=== PATIENT | male | born 1995 | race Caucasian/White ===

== ENCOUNTER 2020-08-16 06:45 | Inpatient (IN) | payer OTHER, SELFPAY ==
[2020-08-16] VITALS (27 sets, daily range): BP systolic 90–135; BP diastolic 48–94; PULSE 75–92; RESP 5–26; TEMP 36.1–37.5; O2SAT 90–100; BMI 33.2; BMI 35.2
--- NOTE | 2020-08-16 | CT_ITS ---
EXAMINATION: CT CHEST WITHOUT CONTRAST CLINICAL INFORMATION: Hypoxia. Body aches. Concern for Covid infection. COMPARISON: Previous chest x-ray from earlier the same day TECHNIQUE: Multidetector volumetric CT imaging of the chest was done. Axial MIP volume rendering provided. Sagittal and coronal reformatted images were obtained. This CT examination was performed using dose optimization techniques as appropriate, variously including the following: *Automated exposure control *Adjustment of mA and/or kV according to patient size (this includes techniques or standardized protocols for targeted exams where dose is matched to indication/reason for exam; i.e. extremities or head) *Use of iterative reconstruction technique DLP: 327 mGy-cm FINDINGS: LUNGS: The lung volumes are low. There is particular volume loss of the right lower lobe. There are bilateral patchy areas of subsegmental atelectasis or small infiltrates. These are areas are greatest in the lower lobes. There are also small areas in the posterior segment of the right upper lobe and medial segment of the right middle lobe and inferior segment of the lingula. There is a 5 mm peripheral or subpleural right lower lobe nodule adjacent to the major fissure probably representing a subpleural lymph node. No endobronchial or endotracheal lesion is seen. No evidence of interstitial lung disease or bronchiectasis or emphysema is seen. MEDIASTINUM: The heart is enlarged. There is shotty mediastinal lymphadenopathy. Evaluation for hilar adenopathy is limited due to lack of IV contrast. There is no pericardial effusion. The thoracic aorta is normal in caliber. The esophagus is unremarkable. The visualized thyroid gland is unremarkable. PLEURA: There is no pleural effusion. No pleural mass or thickening. AXILLA: No lymphadenopathy. UPPER ABDOMEN: The liver is low in attenuation suggestive of fatty infiltration. OSSEOUS STRUCTURES: Unremarkable. IMPRESSION: Low lung volumes. In particular, there is volume loss to the right lower lobe. Bilateral patchy areas of atelectasis or small pneumonia. Chest CT appearance is nonspecific. Enlarged heart. Shotty mediastinal lymphadenopathy. Fatty liver.
--- NOTE | 2020-08-16 | US_ITS ---
EXAMINATION: US ABDOMEN LIMITED CLINICAL INFORMATION: Rule out Budd-Chiari syndrome. COMPARISON: CT chest and abdomen earlier today TECHNIQUE: Real-time imaging of the right upper quadrant abdominal viscera. FINDINGS: PANCREAS: The pancreas appears unremarkable, without masses or ductal dilatation, with the exception of the tail which is obscured by bowel gas. LIVER: The liver demonstrates increased echogenicity suggesting hepatic steatosis similar to that seen on today. No focal liver mass or bile duct dilatation is seen. The hepatic veins all appear patent as does the intrahepatic IVC. GALLBLADDER: Echogenic tumefactive bile is noted in the gallbladder. One area of focal cortical thickening is seen measuring 4 mm. The gallbladder shows no definitive shadowing calculi and no pericholecystic fluid collections. COMMON BILE DUCT: Normal in caliber measuring 0.2 cm in diameter. RIGHT KIDNEY: No hydronephrosis. No renal calculi or focal parenchymal lesions. The kidney measures 9.4 cm in maximum dimension. FREE FLUID: None. IMPRESSION: The hepatic veins and IVC are patent and there is no evidence to suggest the presence of Budd-Chiari syndrome. Again demonstrated is hepatic steatosis.
--- NOTE | 2020-08-16 06:59 | ED.WEAKNESS ---
HPI - Weakness General Chief complaint: General Medical Stated complaint: DOESNT FEEL WELL,LOW O2SAT(92%ON 4LPM) Time Seen by Provider: 08/16/20 06:59 Source: patient Mode of arrival: EMS Limitations: no limitations History of Present Illness HPI Narrative: denies COVID risk factors states he was just not feeling well, no insect bite, no rash, no travel, one prior episode in the past that resolved, EMS found patient to be hypoxic 77 on arrival with improvement to low 90s on 4L NC MD Complaint: generalized weakness and lack of energy Onset (ago): day(s) (2) Duration: constant Location: generalized Migration: none Severity: severe Relieving factors: none Exacerbating factors: none Context: other (DENIES) Associated symptoms: loss of appetite, nausea/vomiting and myalgias Related Data Home Medications Medication Instructions Recorded Confirmed aripiprazole [Abilify] 4 mg PO DAILY 08/16/20 08/16/20 clonazepam [Klonopin] 1 mg PO TID 08/16/20 08/16/20 gabapentin 300 mg PO TID 08/16/20 08/16/20 lamotrigine [Lamictal] 150 mg PO DAILY 08/16/20 08/16/20 methadone 150 mg 08/16/20 Allergies Allergy/AdvReac Type Severity Reaction Status Date / Time animal dander [ANIMAL HAIR] Allergy Intermediate DIFFICULTY Verified 08/16/20 07:00 BREATHING feathers [FEATHERS] Allergy Intermediate DIFFICULTY Verified 08/16/20 07:00 BREATHING del cid [DEL CID] Allergy Intermediate DIFFICULTY Verified 08/16/20 07:00 BREATHING grass pollen [GRASS POLLEN] Allergy Intermediate DIFFICULTY Verified 08/16/20 07:00 BREATHING tree and shrub pollen [TREES] Allergy Intermediate DIFFICULTY Verified 08/16/20 07:00 BREATHING amoxicillin [Amoxicillin] Allergy Unknown HIVES Verified 08/16/20 07:00 Penicillins Allergy Unknown HIVES Verified 08/16/20 07:00 Review of Systems Review of Systems: Constitutional : no Fever, positive Chills, positive fatigue, positive Malaise ENT/Mouth : no sore throat, positive runny nose, positive ear pain Eyes: No Discharge Cardiovascular : No Chest Pain, + weakness Respiratory : No Cough, No Sputum Gastrointestinal : positive Nausea, positive Vomiting, No Diarrhea Genitourinary : No Dysuria, No Urinary Frequency, dark urine Musculoskeletal : positive Myalgia Skin : No rash Neuro : No Headache [facility] Past Medical History Medical History Anxiety Asthma Depression Social History Social History (Updated 08/16/20 @ 07:05 by Judith Alanis DO) Alcohol intake: unknown Smoking Status: Current some day smoker Tobacco Type: E-Cigarette Use of substances other than those prescribed or required for medical reasons: Unknown Substance Use Type Other:: former abuse Advance Directives: No Advance Directives Information Provided: No Physical Exam Vital Signs and I&O and Narrative: Vital Signs and I&O: Vital Signs Temp 97.7 F 08/16/20 10:36 Pulse 88 08/16/20 10:36 Resp 16 08/16/20 10:36 BP 102/64 08/16/20 10:36 Pulse Ox 97 08/16/20 07:52 Intake & Output 08/15/20 08/16/20 08/16/20 18:59 06:59 18:59 Intake Total 1049 / 1049 Balance 1049 / 1049 Weight 96.162 kg Intake: Intake, IV Amoun t 1049 / 1049 cefTRIAXone so dium 1 gm In 0.9 50 / 50 % Sodium Chlor scottie 50 ml @ 100 mls/hr IV ONCE ONE Rx#: [id number] 0.9 % Sodium C hloride 1,000 ml 999 / 999 @ 999 mls/hr I VCONT .Q1H1M LILA Rx#:[id number] Body Mass Index 33.2 Appearance: Alert. Oriented X3. Mild acute distress. Eyes: Pupils equal, round and reactive to light. ENT: Pharynx moderate dry MMM Neck: Normal inspection. Neck supple. CVS: Normal heart rate and rhythm. Pulses normal. Respiratory: No respiratory distress. Breath sounds decreased, rhonchi noted Abdomen: Soft and nontender. Skin: Skin warm and dry. Normal skin color. poor skin turgor. Extremities: No lower extremity edema. Normal ROM Neuro: Oriented X 3. No motor deficit. No sensory deficit. Course Course Course Narrative: IVF held at this time as presumed VS and lab abnormalities due to COVID viral infection and not bacterial in nature, also showing signs of cardiomegaly and elevated BNP concerning for myocarditis and possible CHF Reevaluation(s) Reevaluation #1: will obtain CT chest at this time for better evaluation of lungs Time: 08:56 Reevaluation #2: call to cardiology no STEMI on EKG noted by me, Bandar aware - ECHO ordered Reevaluation #3: call to ICU pending call back, ordered CT scan of abdomen to look for infection as well procalcitonin is 17 Additional Reevaluation(s): Dr. Cherry aware will come down to see patient and place line MDM - Weakness MDM Narrative Medical decision making narrative: patient with malaise, fatigue, body aches low O2 sat with EMS now on 4L NC in 90s, ?viral syndrome vs pneumonia will need labs, lactic acid, cultures, CXR, IVF, tylenol and zofran, COVID swab ordered Lab Data Result diagrams: 08/16/20 07:27 08/16/20 07:27 Labs: Lab Results 08/16/20 08/16/20 08/16/20 Range/Units 07:27 07:27 07:27 WBC 13.1 H (4.8-10.8) X10*3/uL RBC 4.58 L (4.60-5.80) X10*6/uL Hgb 13.2 L (14.0-18.0) g/dl Hct 41.8 L (42-52) % MCV 91.3 (80-98) fL MCH 28.8 (27.0-33.0) pg MCHC 31.6 (31.0-36.0) g/dl RDW 13.3 (11.0-16.0) % Plt Count 128 L (160-400) X10*3/uL MPV 10.3 (9.4-12.4) fL Immature Gran % (Auto) 0.4 (0.0-0.4) % Neut % (Auto) 75.8 H (45-73) % Lymph % (Auto) 15.7 L (20-40) % Harding % (Auto) 8.0 (2-11) % Eos % (Auto) 0.0 (0-4) % Baso % (Auto) 0.1 (0-2) % Neut # (Auto) 9.9 H (2.0-8.3) X10*3/uL Lymph # (Auto) 2.1 (1.2-4.9) X10*3/uL [place] # (Auto) 1.1 (0.1-1.2) X10*3/uL Eos # (Auto) 0.0 (0.0-0.4) X10*3/uL Baso # (Auto) 0.0 (0.0-0.2) X10*3/uL Abs Immat Gran (auto) 0.05 H (0.00-0.03) X10*3/uL Absolute Nucleated RBC 0.000 (0.0-0.012) X10*3/uL Nucleated RBC % (auto) 0.0 (0.0-0.2) /100WBC PT 23.5 H (10.8-13.0) SEC INR 2.0 H (0.9-1.1) APTT 40.3 H (24.1-38.0) SEC D-Dimer 50029 NG/ML ABG pH (7.35-7.45) ABG pCO2 (32-45) mmhg ABG pO2 (83-108) mmhg ABG HCO3 (22-26) mmol/l ABG O2 Saturation ABG Base Excess VBG pH (7.32-7.43) VBG pCO2 mmhg VBG Oxygen Liters/Min VBG pO2 mmhg VBG HCO3 mmol/L VBG O2 Saturation % VBG Base Excess mmol/L Carboxyhemoglobin % Oxygen Given Sodium 135 (135-145) mmol/L Potassium 5.2 H (3.3-5.1) mmol/l Chloride 95 L (96-108) mmol/L Carbon Dioxide 27 (22-29) mmol/L Anion Gap 18 (12-20) BUN 31 H (9-16) mg/dL Creatinine 2.28 H (0.5-1.4) mg/dL Estim Creat Clear Calc 54.7 Estimated GFR 35 Random Glucose 66 (60-115) mg/dL Lactic Acid (0.5-2.0) mmol/L Calcium 7.6 L (8.4-10.2) mg/dL Magnesium 2.3 (1.6-2.6) mg/dL Ferritin > 05189 H (20-250) ng/mL Total Bilirubin 0.5 (0.0-1.0) mg/dL Direct Bilirubin 0.2 (0.0-0.5) mg/dL AST 31789 H (5-37) U/L ALT 6793 H (0-40) U/L Alkaline Phosphatase 93 (39-117) U/L Lactate Dehydrogenase 66351 H (118-273) U/L Total Creatine Kinase 2260 H (38-174) U/L Troponin I High Sens (<3.5-35.0) ng/L B-Natriuretic Peptide (<100) pg/mL Total Protein 7.3 (6.5-8.0) g/dL Albumin 4.1 (3.5-5.0) g/dL Lipase 114 H (8-78) U/L Procalcitonin ng/mL TSH 0.31 L (0.32-4.0) mIU/mL Acetaminophen 18 (<30) mcg/mL Acetone, Qual Negative (Negative) Respiratory Panel Rider Adenovirus (Rapid PCR) (Not Detect.) B.pert (TEM-PCR) (Not Detect.) B.parapertussis DNA PCR (Not Detect.) C. pneumoniae DNA (PCR) (Not Detect.) Coronavirus OC43 (PCR) (Not Detect.) Coronavirus HKU1 (PCR) (Not Detect.) Coronavirus 229E (PCR) (Not Detect.) Coronavirus NL63 (PCR) (Not Detect.) Human Metapneumovir PCR (Not Detect.) Influenza A (RT-PCR) (Not Detect.) Influenza B (RT-PCR) (Not Detect.) M. pneumoniae (PCR) (Not Detect.) Parainfluenza 1 (PCR) (Not Detect.) Parainfluenza 2 (PCR) (Not Detect.) Parainfluenza 3 (PCR) (Not Detect.) Parainfluenza 4 (PCR) (Not Detect.) RSV (PCR) (Not Detect.) Entero/Rhino (PCR) (Not Detect.) SARS-CoV-2 RNA (RT-PCR) (Not Detect.) 08/16/20 08/16/20 08/16/20 Range/Units 07:28 07:28 07:28 WBC (4.8-10.8) X10*3/uL RBC (4.60-5.80) X10*6/uL Hgb (14.0-18.0) g/dl Hct (42-52) % MCV (80-98) fL MCH (27.0-33.0) pg MCHC (31.0-36.0) g/dl RDW (11.0-16.0) % Plt Count (160-400) X10*3/uL MPV (9.4-12.4) fL Immature Gran % (Auto) (0.0-0.4) % Neut % (Auto) (45-73) % Lymph % (Auto) (20-40) % Harding % (Auto) (2-11) % Eos % (Auto) (0-4) % Baso % (Auto) (0-2) % Neut # (Auto) (2.0-8.3) X10*3/uL Lymph # (Auto) (1.2-4.9) X10*3/uL [place] # (Auto) (0.1-1.2) X10*3/uL Eos # (Auto) (0.0-0.4) X10*3/uL Baso # (Auto) (0.0-0.2) X10*3/uL Abs Immat Gran (auto) (0.00-0.03) X10*3/uL Absolute Nucleated RBC (0.0-0.012) X10*3/uL Nucleated RBC % (auto) (0.0-0.2) /100WBC PT (10.8-13.0) SEC INR (0.9-1.1) APTT (24.1-38.0) SEC D-Dimer NG/ML ABG pH (7.35-7.45) ABG pCO2 (32-45) mmhg ABG pO2 (83-108) mmhg ABG HCO3 (22-26) mmol/l ABG O2 Saturation ABG Base Excess VBG pH (7.32-7.43) VBG pCO2 mmhg VBG Oxygen Liters/Min VBG pO2 mmhg VBG HCO3 mmol/L VBG O2 Saturation % VBG Base Excess mmol/L Carboxyhemoglobin 1.8 % Oxygen Given Sodium (135-145) mmol/L Potassium (3.3-5.1) mmol/l Chloride (96-108) mmol/L Carbon Dioxide (22-29) mmol/L Anion Gap (12-20) BUN (9-16) mg/dL Creatinine (0.5-1.4) mg/dL Estim Creat Clear Calc Estimated GFR Random Glucose (60-115) mg/dL Lactic Acid 1.9 (0.5-2.0) mmol/L Calcium (8.4-10.2) mg/dL Magnesium (1.6-2.6) mg/dL Ferritin (20-250) ng/mL Total Bilirubin (0.0-1.0) mg/dL Direct Bilirubin (0.0-0.5) mg/dL AST (5-37) U/L ALT (0-40) U/L Alkaline Phosphatase (39-117) U/L Lactate Dehydrogenase (118-273) U/L Total Creatine Kinase (38-174) U/L Troponin I High Sens 2660.9 H (<3.5-35.0) ng/L B-Natriuretic Peptide 1488 H (<100) pg/mL Total Protein (6.5-8.0) g/dL Albumin (3.5-5.0) g/dL Lipase (8-78) U/L Procalcitonin ng/mL TSH (0.32-4.0) mIU/mL Acetaminophen (<30) mcg/mL Acetone, Qual (Negative) Respiratory Panel Rider Adenovirus (Rapid PCR) (Not Detect.) B.pert (TEM-PCR) (Not Detect.) B.parapertussis DNA PCR (Not Detect.) C. pneumoniae DNA (PCR) (Not Detect.) Coronavirus OC43 (PCR) (Not Detect.) Coronavirus HKU1 (PCR) (Not Detect.) Coronavirus 229E (PCR) (Not Detect.) Coronavirus NL63 (PCR) (Not Detect.) Human Metapneumovir PCR (Not Detect.) Influenza A (RT-PCR) (Not Detect.) Influenza B (RT-PCR) (Not Detect.) M. pneumoniae (PCR) (Not Detect.) Parainfluenza 1 (PCR) (Not Detect.) Parainfluenza 2 (PCR) (Not Detect.) Parainfluenza 3 (PCR) (Not Detect.) Parainfluenza 4 (PCR) (Not Detect.) RSV (PCR) (Not Detect.) Entero/Rhino (PCR) (Not Detect.) SARS-CoV-2 RNA (RT-PCR) (Not Detect.) 08/16/20 08/16/20 08/16/20 Range/Units 07:28 07:28 08:35 WBC (4.8-10.8) X10*3/uL RBC (4.60-5.80) X10*6/uL Hgb (14.0-18.0) g/dl Hct (42-52) % MCV (80-98) fL MCH (27.0-33.0) pg MCHC (31.0-36.0) g/dl RDW (11.0-16.0) % Plt Count (160-400) X10*3/uL MPV (9.4-12.4) fL Immature Gran % (Auto) (0.0-0.4) % Neut % (Auto) (45-73) % Lymph % (Auto) (20-40) % [place] % (Auto) (2-11) % Eos % (Auto) (0-4) % Baso % (Auto) (0-2) % Neut # (Auto) (2.0-8.3) X10*3/uL Lymph # (Auto) (1.2-4.9) X10*3/uL [place] # (Auto) (0.1-1.2) X10*3/uL Eos # (Auto) (0.0-0.4) X10*3/uL Baso # (Auto) (0.0-0.2) X10*3/uL Abs Immat Gran (auto) (0.00-0.03) X10*3/uL Absolute Nucleated RBC (0.0-0.012) X10*3/uL Nucleated RBC % (auto) (0.0-0.2) /100WBC PT (10.8-13.0) SEC INR (0.9-1.1) APTT (24.1-38.0) SEC D-Dimer NG/ML ABG pH 7.21 L (7.35-7.45) ABG pCO2 68 H* (32-45) mmhg ABG pO2 67 L (83-108) mmhg ABG HCO3 26 (22-26) mmol/l ABG O2 Saturation TNP ABG Base Excess -3.2 VBG pH 7.25 L (7.32-7.43) VBG pCO2 71 mmhg VBG Oxygen Liters/Min VBG pO2 105 mmhg VBG HCO3 30 mmol/L VBG O2 Saturation 96.8 % VBG Base Excess 1.0 mmol/L Carboxyhemoglobin % Oxygen Given 3 L Sodium (135-145) mmol/L Potassium (3.3-5.1) mmol/l Chloride (96-108) mmol/L Carbon Dioxide (22-29) mmol/L Anion Gap (12-20) BUN (9-16) mg/dL Creatinine (0.5-1.4) mg/dL Estim Creat Clear Calc Estimated GFR Random Glucose (60-115) mg/dL Lactic Acid (0.5-2.0) mmol/L Calcium (8.4-10.2) mg/dL Magnesium (1.6-2.6) mg/dL Ferritin (20-250) ng/mL Total Bilirubin (0.0-1.0) mg/dL Direct Bilirubin (0.0-0.5) mg/dL AST (5-37) U/L ALT (0-40) U/L Alkaline Phosphatase (39-117) U/L Lactate Dehydrogenase (118-273) U/L Total Creatine Kinase (38-174) U/L Troponin I High Sens (<3.5-35.0) ng/L B-Natriuretic Peptide (<100) pg/mL Total Protein (6.5-8.0) g/dL Albumin (3.5-5.0) g/dL Lipase (8-78) U/L Procalcitonin 17.44 ng/mL TSH (0.32-4.0) mIU/mL Acetaminophen (<30) mcg/mL Acetone, Qual (Negative) Respiratory Panel Rider Adenovirus (Rapid PCR) (Not Detect.) B.pert (TEM-PCR) (Not Detect.) B.parapertussis DNA PCR (Not Detect.) C. pneumoniae DNA (PCR) (Not Detect.) Coronavirus OC43 (PCR) (Not Detect.) Coronavirus HKU1 (PCR) (Not Detect.) Coronavirus 229E (PCR) (Not Detect.) Coronavirus NL63 (PCR) (Not Detect.) Human Metapneumovir PCR (Not Detect.) Influenza A (RT-PCR) (Not Detect.) Influenza B (RT-PCR) (Not Detect.) M. pneumoniae (PCR) (Not Detect.) Parainfluenza 1 (PCR) (Not Detect.) Parainfluenza 2 (PCR) (Not Detect.) Parainfluenza 3 (PCR) (Not Detect.) Parainfluenza 4 (PCR) (Not Detect.) RSV (PCR) (Not Detect.) Entero/Rhino (PCR) (Not Detect.) SARS-CoV-2 RNA (RT-PCR) (Not Detect.) 08/16/20 Range/Units 09:44 WBC (4.8-10.8) X10*3/uL RBC (4.60-5.80) X10*6/uL Hgb (14.0-18.0) g/dl Hct (42-52) % MCV (80-98) fL MCH (27.0-33.0) pg MCHC (31.0-36.0) g/dl RDW (11.0-16.0) % Plt Count (160-400) X10*3/uL MPV (9.4-12.4) fL Immature Gran % (Auto) (0.0-0.4) % Neut % (Auto) (45-73) % Lymph % (Auto) (20-40) % Harding % (Auto) (2-11) % Eos % (Auto) (0-4) % Baso % (Auto) (0-2) % Neut # (Auto) (2.0-8.3) X10*3/uL Lymph # (Auto) (1.2-4.9) X10*3/uL Harding # (Auto) (0.1-1.2) X10*3/uL Eos # (Auto) (0.0-0.4) X10*3/uL Baso # (Auto) (0.0-0.2) X10*3/uL Abs Immat Gran (auto) (0.00-0.03) X10*3/uL Absolute Nucleated RBC (0.0-0.012) X10*3/uL Nucleated RBC % (auto) (0.0-0.2) /100WBC PT (10.8-13.0) SEC INR (0.9-1.1) APTT (24.1-38.0) SEC D-Dimer NG/ML ABG pH (7.35-7.45) ABG pCO2 (32-45) mmhg ABG pO2 (83-108) mmhg ABG HCO3 (22-26) mmol/l ABG O2 Saturation ABG Base Excess VBG pH (7.32-7.43) VBG pCO2 mmhg VBG Oxygen Liters/Min VBG pO2 mmhg VBG HCO3 mmol/L VBG O2 Saturation % VBG Base Excess mmol/L Carboxyhemoglobin % Oxygen Given Sodium (135-145) mmol/L Potassium (3.3-5.1) mmol/l Chloride (96-108) mmol/L Carbon Dioxide (22-29) mmol/L Anion Gap (12-20) BUN (9-16) mg/dL Creatinine (0.5-1.4) mg/dL Estim Creat Clear Calc Estimated GFR Random Glucose (60-115) mg/dL Lactic Acid (0.5-2.0) mmol/L Calcium (8.4-10.2) mg/dL Magnesium (1.6-2.6) mg/dL Ferritin (20-250) ng/mL Total Bilirubin (0.0-1.0) mg/dL Direct Bilirubin (0.0-0.5) mg/dL AST (5-37) U/L ALT (0-40) U/L Alkaline Phosphatase (39-117) U/L Lactate Dehydrogenase (118-273) U/L Total Creatine Kinase (38-174) U/L Troponin I High Sens (<3.5-35.0) ng/L B-Natriuretic Peptide (<100) pg/mL Total Protein (6.5-8.0) g/dL Albumin (3.5-5.0) g/dL Lipase (8-78) U/L Procalcitonin ng/mL TSH (0.32-4.0) mIU/mL Acetaminophen (<30) mcg/mL Acetone, Qual (Negative) Respiratory Panel Rider See Note Adenovirus (Rapid PCR) Not Detected (Not Detect.) B.pert (TEM-PCR) Not Detected (Not Detect.) B.parapertussis DNA PCR Not Detected (Not Detect.) C. pneumoniae DNA (PCR) Not Detected (Not Detect.) Coronavirus OC43 (PCR) Not Detected (Not Detect.) Coronavirus HKU1 (PCR) Not Detected (Not Detect.) Coronavirus 229E (PCR) Not Detected (Not Detect.) Coronavirus NL63 (PCR) Not Detected (Not Detect.) Human Metapneumovir PCR Not Detected (Not Detect.) Influenza A (RT-PCR) Not Detected (Not Detect.) Influenza B (RT-PCR) Not Detected (Not Detect.) M. pneumoniae (PCR) Not Detected (Not Detect.) Parainfluenza 1 (PCR) Not Detected (Not Detect.) Parainfluenza 2 (PCR) Not Detected (Not Detect.) Parainfluenza 3 (PCR) Not Detected (Not Detect.) Parainfluenza 4 (PCR) Not Detected (Not Detect.) RSV (PCR) Not Detected (Not Detect.) Entero/Rhino (PCR) Not Detected (Not Detect.) SARS-CoV-2 RNA (RT-PCR) Not Detected (Not Detect.) ECG Data ECG interpretation date: 08/16/20 ECG interpretation time: 08:37 Interpretation: Rate: 87 Rhythm: NSR [place]: normal Normal P waves. Normal KIM. Normal QRS complex. ST T wave : normal qTC: prolonged prior studies: The study has been interpreted contemporaneously by me. . Critical Care Time Critical Care Time Critical Care Time: Yes Total Critical Care Time: 90 Attestation: I personally attest to this time spent taking care of the patient Discharge Plan Discharge Prescriptions: No Action aripiprazole [Abilify] 2 mg Tablet 4 mg PO DAILY RF: 0 lamotrigine [Lamictal] 150 mg Tablet 150 mg PO DAILY RF: 0 methadone 10 mg/mL Solution 150 mg RF: 0 clonazepam [Klonopin] 1 mg Tablet 1 mg PO TID RF: 0 gabapentin 300 mg Tablet 300 mg PO TID RF: 0
--- NOTE | 2020-08-16 07:00 | ECG_ITS ---
Test Reason : DYSPNEA Blood Pressure : / mmHG Vent. Rate : 087 BPM Atrial Rate : 087 BPM P-R Int : 172 ms QRS Dur : 082 ms QT Int : 422 ms P-R-T Axes : 026 013 011 degrees QTc Int : 507 ms Normal sinus rhythm Nonspecific T wave abnormality Possible Inferior infarct , age undetermined Prolonged QT Abnormal ECG When compared with ECG of 06-AUG-2016 03:47, Nonspecific T wave abnormality is now Present Heart rate has decreased QT has lengthened Referred By: Judith Alanis Electronically Signed By:NOEMI YAÑEZ
--- NOTE | 2020-08-16 07:01 | XR_ITS ---
EXAMINATION: XR CHEST CLINICAL INFORMATION: Weakness, cough COMPARISON: Chest radiographs 07/29/2020, 12/05/2019 TECHNIQUE: Portable upright AP view of the chest was obtained. FINDINGS: There are low lung volumes with inspiration to the eighth posterior intercostal spaces. There is likely subsegmental bibasilar atelectasis. There is subtle airspace opacity left retrocardiac region and possibly trace effusion blunting left lateral costophrenic angle. There is no lobar or segmental airspace consolidation. The vascularity is normal. The hilar and mediastinal contours and bony structures are unremarkable IMPRESSION: Low lung volumes with bibasilar subsegmental atelectasis and subtle airspace opacity left retrocardiac region. Probable trace left effusion.
[2020-08-16] MEDS: Acetaminophen 325 MG TABLET 650 MG PO (07:36)
[2020-08-16 07:37] LABS: MANUAL DIFF FLAG NO
[2020-08-16] MEDS: 0.9 % Sodium Chloride 1,000 ML 999 ML IVCONT (07:37)
[2020-08-16] MEDS: ondansetron HCL 4 MG/2 ML VIAL IVPUSH (07:37)
[2020-08-16 07:39] LABS: Basophils Percent Auto 0.1 % (0-2); Hematocrit 41.8 % (42-52); Hemoglobin 13.2 g/dl (14.0-18.0); Imm Gran Abs Auto 0.05 X10*3/uL (0.00-0.03); Imm Gran Pct Auto 0.4 % (0.0-0.4); Lymphocytes Absolute Auto 2.1 X10*3/uL (1.2-4.9); Lymphocytes Percent Auto 15.7 % (20-40); Mean Corpuscular HGB Conc 31.6 g/dl (31.0-36.0); Mean Corpuscular Hemoglobin 28.8 pg (27.0-33.0); Mean Corpuscular Volume 91.3 fL (80-98); Mean Platelet Volume 10.3 fL (9.4-12.4); Monocytes Absolute Auto 1.1 X10*3/uL (0.1-1.2); Neutrophils Absolute Auto 9.9 X10*3/uL (2.0-8.3); Neutrophils Percent Auto 75.8 % (45-73); Platelet Count 128 X10*3/uL (160-400); Red Blood Count 4.58 X10*6/uL (4.60-5.80); Red Cell Distribution Width 13.3 % (11.0-16.0); White Blood Count 13.1 X10*3/uL (4.8-10.8)
[2020-08-16 07:45] LABS: pH VBG 7.25 (7.32-7.43)
[2020-08-16 07:46] LABS: Carboxyhemoglobin 1.8 %; HCO3 VBG 30 mmol/L; Oxygen Saturation VBG 96.8 %; PCO2 VBG 71 mmhg; PO2 VBG 105 mmhg
[2020-08-16 07:48] LABS: Prothrombin Time 23.5 SEC (10.8-13.0)
[2020-08-16 07:51] LABS: Partial Thromboplastin Time 40.3 SEC (24.1-38.0)
[2020-08-16] MEDS: Albuterol/Iprat 2.5/0.5MG 3 ML AMPUL.NEB INHALE (08:04)
[2020-08-16 08:12] LABS: Lactic Acid 1.9 mmol/L (0.5-2.0)
[2020-08-16 08:33] LABS: Acetone, serum QL Negative (Negative)
[2020-08-16 08:37] LABS: Troponin-I High Sensitivity 2660.9 ng/L (<3.5-35.0)
[2020-08-16 08:41] LABS: Alanine Aminotransferase 6793 U/L (0-40); Albumin Level 4.1 g/dL (3.5-5.0); Alkaline Phosphatase 93 U/L (39-117); Anion Gap 18 (12-20); Bilirubin Direct 0.2 mg/dL (0.0-0.5); Bilirubin Total 0.5 mg/dL (0.0-1.0); Blood Urea Nitrogen 31 mg/dL (9-16); Calcium 7.6 mg/dL (8.4-10.2); Carbon Dioxide 27 mmol/L (22-29); Chloride 95 mmol/L (96-108); Creatinine Clr Calc Pharmacy 54.7; Estimated Glomerular Filt Rate 35; Glucose Random 66 mg/dL (60-115); Lipase 114 U/L (8-78); Magnesium 2.3 mg/dL (1.6-2.6); Potassium 5.2 mmol/l (3.3-5.1); Sodium 135 mmol/L (135-145); Thyroid Stimulating Hormone 0.31 mIU/mL (0.32-4.0); Total Protein 7.3 g/dL (6.5-8.0)
[2020-08-16] MEDS: cefTRIAXone sodium 1 GM in 0.9 % Sodium Chloride 50 ML IV (08:57)
[2020-08-16 09:04] LABS: Procalcitonin 17.44 ng/mL
[2020-08-16 09:07] LABS: Lactate Dehydrogenase 19603 U/L (118-273)
[2020-08-16 09:08] LABS: B Type Natriuretic Peptide 1488 pg/mL (<100)
--- NOTE | 2020-08-16 09:11 | CT_ITS ---
EXAMINATION: CT ABDOMEN AND PELVIS WITHOUT CONTRAST CLINICAL INFORMATION: Weakness COMPARISON: Previous abdominal and pelvic CT scan February 2016 TECHNIQUE: Multidetector volumetric imaging was performed from the superior aspect of the liver through the pubic symphysis. Sagittal and coronal reformatted images were obtained on the technologist's workstation. This CT examination was performed using dose optimization techniques as appropriate, variously including the following: *Automated exposure control *Adjustment of mA and/or kV according to patient size (this includes techniques or standardized protocols for targeted exams where dose is matched to indication/reason for exam; i.e. extremities or head) *Use of iterative reconstruction technique DLP: 756 mGy-cm FINDINGS: LUNG BASES: There is subsegmental atelectasis at the lung bases. The heart appears enlarged. LIVER, GALLBLADDER, AND BILIARY TREE: The liver is low in attenuation suggestive of fatty infiltration. No focal liver lesion is seen. The gallbladder is unremarkable with no evidence of radiopaque gallstones, gallbladder wall thickening, or obvious pericholecystic inflammatory changes. There is no biliary duct dilatation. PANCREAS: Unremarkable. SPLEEN: Unremarkable. ADRENAL GLANDS: Unremarkable. KIDNEYS AND URETERS: The kidneys are normal in size, shape, and attenuation. No hydronephrosis, hydroureter, or calculi seen. No perinephric stranding. BLADDER: There is a Fu catheter in the bladder. The bladder is empty. GASTROINTESTINAL TRACT: There is stool throughout the colon suggestive of constipation. Small and large bowel is otherwise unremarkable. The appendix is unremarkable. ABDOMINAL WALL: No significant hernia is appreciated. LYMPH NODES: Normal. VASCULAR: Unremarkable. PELVIC VISCERA: Unremarkable. OSSEOUS STRUCTURES: Unremarkable. IMPRESSION: Fatty liver. Stool throughout the colon suggestive of constipation. Fu catheter in the bladder. The bladder is empty.
[2020-08-16 09:23] LABS: Aspartate Amino Transferase 17345 U/L (5-37)
[2020-08-16 09:26] LABS: Pt Ventilation O2% 3 L
[2020-08-16 09:30] LABS: Base Excess ABG -3.2; HCO3 ABG 26 mmol/l (22-26); PO2 ABG 67 mmhg (83-108)
[2020-08-16] MEDS: Azithromycin 500 MG in 0.9 % Sodium Chloride 250 ML 250 MG IV (09:31)
[2020-08-16 09:32] LABS: ABG PCO2 68 mmhg (32-45)
[2020-08-16 09:33] LABS: pH ABG 7.21 (7.35-7.45)
[2020-08-16 09:53] LABS: Adenovirus PCR Not Detected (Not Detect.); Bordetella parapertussis PCR Not Detected (Not Detect.); Bordetella pertussis PCR Not Detected (Not Detect.); Chlamydia pneumoniae PCR Not Detected (Not Detect.); Coronavirus 229E PCR Not Detected (Not Detect.); Coronavirus HKU1 PCR Not Detected (Not Detect.); Coronavirus NL63 PCR Not Detected (Not Detect.); Coronavirus OC43 PCR Not Detected (Not Detect.); Human metapneumovirus PCR Not Detected (Not Detect.); Influenza A PCR Not Detected (Not Detect.); Influenza B PCR Not Detected (Not Detect.); Mycoplasma pneumoniae PCR Not Detected (Not Detect.); Parainfluenza 1 PCR Not Detected (Not Detect.); Parainfluenza 2 PCR Not Detected (Not Detect.); Parainfluenza 3 PCR Not Detected (Not Detect.); Parainfluenza 4 PCR Not Detected (Not Detect.); RSV PCR Not Detected (Not Detect.); Rhino/Enterovirus PCR Not Detected (Not Detect.); SARS-CoV-2 PCR Not Detected (Not Detect.)
--- NOTE | 2020-08-16 09:57 | PC.NURSE ---
DR. GARCIA AT BEDSIDE, PT AWARE OF PLAN OF CARE
[2020-08-16 10:01] LABS: Acetaminophen LAB 18 mcg/mL (<30)
--- NOTE | 2020-08-16 10:23 | PC.NURSE ---
ICU MD AT BEDSIDE, CENTAL LINE PLACED TO R SUBCLAVIAN VEIN. PT TOLERATED WELL.
--- NOTE | 2020-08-16 10:26 | XR_ITS ---
EXAMINATION: XR CHEST CLINICAL INFORMATION: Central line placement COMPARISON: Previous chest x-rays from earlier the same day TECHNIQUE: Frontal view of the chest was obtained. FINDINGS: There is a new right jugular line with tip projecting over the cavoatrial junction. No pneumothorax is seen. The lung volumes are low. The cardiac silhouette is prominent. This may be overestimated due to apical lordotic technique. There is subsegmental atelectasis at the right lung base. The lungs are otherwise clear. There is no pleural effusion. Visualized bony structures are unremarkable. IMPRESSION: Right jugular line projecting over cavoatrial junction. No pneumothorax.
[2020-08-16 10:32] LABS: Ferritin > 30000 ng/mL (20-250)
[2020-08-16 10:42] LABS: D Dimer 10395 NG/ML
--- NOTE | 2020-08-16 11:40 | CA_ITS ---
Transthoracic Echocardiogram Patient (Last, First, Middle): Abraham Meraz, Gender: Male Date of : 1995 Age: 25 Procedure Date: 08/16/2020 Procedure Type: Transthoracic Echocardiogram Location: ICU Height: 170.18 cm Weight: 96.16 kg BSA: 2.07 m2 Heart Rate: bpm BP: 110 / 77 mmHg Systems Manager: FLAVIO Referring MD: Judith Alanis DO Symptoms: [facility] Study Quality: Fair ECG Rhythm: Sinus Conclusions: - The left ventricular systolic function is mildly decreased. The visually estimated ejection fraction is between 45-50%. - Moderately increased right ventricular cavity size. There is mildly decreased right ventricular systolic function. - There is mild tricuspid valve regurgitation. - Mild pulmonary hypertension is present. Findings Procedure Information Contrast agent, definity, is being given per protocol without apparent complications. Left Ventricle Normal left ventricular cavity size. There is normal left ventricular wall thickness. The left ventricular systolic function is mildly decreased. The visually estimated ejection fraction is between 45-50%. The calculated ejection fraction is 50% by biplane method. There is mild global hypokinesis. Diastolic function is normal for age. Right Ventricle Moderately increased right ventricular cavity size. There is mildly decreased right ventricular systolic function. Atria The left atrium is normal in size. The right atrium is mildly dilated. Aortic Valve There is a normal trileaflet aortic valve. There is no aortic valve stenosis. There is no aortic valve regurgitation. Mitral Valve The mitral valve appears normal. There is trace mitral valve regurgitation. There is no mitral valve stenosis. Pulmonic Valve The pulmonic valve was not well visualized. There is trace pulmonic valve regurgitation. Tricuspid Valve Normal tricuspid valve structure. There is mild tricuspid valve regurgitation. Mild pulmonary hypertension is present. Great Vessels The aortic annulus, sinuses of valsalva, and asc aorta are normal in size. Venous The inferior vena cava is mildly dilated and does not collapse with inspiration. Pericardium/Pleural There is no evidence of pericardial effusion. Prior Study Comparison No prior study available for comparison. Measurements 2D Linear Measurements RVIDd: 3.25 RVIDd Index: 1.57 IVSd: 1.02 0.6-0.9/0.6-1.0 cm LVIDd: 4.43 3.9-5.3/4.2-5.9 cm LVIDd Index: 2.14 2.4-3.2/2.2-3.1 cm/m2 LVIDs: 3.08 2.0-3.6 cm LVPWd: 0.90 0.7-1.1 cm Ao Root: 2.70 2.1-3.5 cm LA Diam: 3.40 2.7-3.8/3.0-4.0 cm LAIDs Index: 1.64 1.5-2.3 cm/m2 LV Mass: 176.13 67-162/88-224 g LV Mass Index: 85.08 43-95/49-115 g/m2 LVOT Diam: 2.20 3.0+(-)1.3 cm 2D Systolic Function EF 4C: 47.50 >55% EF 2C: 54.40 >55% EF BiP: 49.80 >55% Mitral Valve MV Pk E: 0.99 MV PK A: 0.62 MV Decel Time: 187.00 E/A: 1.60 E'Lateral: 13.40 E'Medial: 8.70 E/E' Med: 11.40 E/E' Lat: 7.40 Aortic Valve AoV Pk Jamari: 1.00 AoV Mn Jamari: 0.70 AoV VTI: 0.19 AoV Pk Grad: 4.00 Aov Mn Grad: 2.00 ROMEO Cont.VTI: 3.03 LVOT LVOT Pk Jamari: 0.85 LVOT Mn Jamari: 0.54 LVOT VTI: 0.15 LVOT Pk Grad: 3.00 LVOT Mn Grad: 1.00 LVOT Diam: 2.20 LVOT Area: 3.80 Diastolic Function MV Pk E: 0.99 MV Pk A: 0.62 E/A: 1.60 E'Medial: 8.70 E/E' Med: 11.40 E' Laterial: 13.40 E/E' Lat: 7.40 Tricuspid Valve TR Pk Jamari: 2.62 TR Pk Grad: 27.00 RA Press: 15.00 RVSP: 42.00 Great Vessels Aorta Ao Root-2D: 2.70 2.0-3.7 cm Ao Asc: 2.50 2.1-3.4 cm Updated in Other Vendor System with Status of Final Sridhar Portillo MD electronically signed on 08/16/2020 5:48:44 PM with status of Final
--- NOTE | 2020-08-16 11:43 | P.HPCC_ITS ---
History of Present Illness Date of Service: 08/16/20 Chief Complaint: 25-year-old with diffuse pain former IV drug abuser. Four years ago now on methadone through clinic and disc claims any illicit drug use no travel no exposure no fever no chills and 2 weeks ago was in the ER for epigastric discomfort and sent home on only Prilosec and now repeat presents with markedly elevated transaminases and no cholestasis acute renal failure and acute hypercarbic and hypoxic respiratory failure with elevated BNP and troponin and CPK with a bedside echo showing moderate diffuse hypokinesis of left ventricle with 45% ejection fraction and mild dilatation of right ventricle but no primary valve or pericardial di sease EKG just shows mild nonspecific ST-T flattening in the precordial leads markedly elevated ferritin and LDH of nearly 20,000 with a hemoglobin of 13 does not demonstrate a significant left shift on his white count differential but does have coagulopathy with elevated PT and PTT and and thrombocytopenia at 128,000 raising question of DIC verses hepatic failure as well the slide of his cbc did not show any evidence of bed BC Pillager and there was no evidence of hemolysis on the nasal high-flow at 45 liters/minute he had a significant improvement in his oxygen saturation on 50% FiO2 now running at about 97% mean arterial pressure improved with addition of Levophed to 76 and systolic improved to 115 given his lethargy even though cognitive function is preserved, I gave him mannitol x1 for presumptive cerebral edema and then make contact with a tertiary center which was a liver transplant center because I am concerned for potential need for dialysis specially with elevated ammonia of 300 and then of course but potential placement on transplant list for his liver the hepatitis profile including B and C as well as HIV profile and his [place] id are all negative Review of Systems Review of Systems: Yes Unobtainable due to mental status and Other ( he just complains of a nondescript diffuse pain and denies shortness of br) Integumentary/Breasts: Comments: no rash PMFSH Past Medical History Medical History Anxiety Asthma Depression Cognitive capacity: normal cognitive capacity Family History Pertinent family history: none Social History Social History (Updated 08/16/20 @ 16:46 by Barbie Cherry MD) Alcohol intake: unknown Smoking Status: Current some day smoker Tobacco Type: E-Cigarette Use of substances other than those prescribed or required for medical reasons: Yes Substance Use Type Other:: former abuse Advance Directives: No Advance Directives Information Provided: No Travel History Ebola Risk: Travel/Contact With Anyone From Affected Area/s: No Has Patient Experienced Ebola Symptoms: No I have personally reviewed the patient's Ebola risk: Yes History of recent travel: No Recent Travel in [facility] Within the Last 8 Weeks: No Meds Allergies Allergy/AdvReac Type Severity Reaction Status Date / Time animal dander [ANIMAL HAIR] Allergy Intermediate DIFFICULTY Verified 08/16/20 07:00 BREATHING feathers [FEATHERS] Allergy Intermediate DIFFICULTY Verified 08/16/20 07:00 BREATHING del cid [DEL CID] Allergy Intermediate DIFFICULTY Verified 08/16/20 07:00 BREATHING grass pollen [GRASS POLLEN] Allergy Intermediate DIFFICULTY Verified 08/16/20 07:00 BREATHING tree and shrub pollen [TREES] Allergy Intermediate DIFFICULTY Verified 08/16/20 07:00 BREATHING amoxicillin [Amoxicillin] Allergy Unknown HIVES Verified 08/16/20 07:00 Penicillins Allergy Unknown HIVES Verified 08/16/20 07:00 Home Medications Medication Instructions Recorded Confirmed Type aripiprazole [Abilify] 4 mg PO DAILY 08/16/20 08/16/20 History clonazepam [Klonopin] 1 mg PO TID 08/16/20 08/16/20 History gabapentin 300 mg PO TID 08/16/20 08/16/20 History lamotrigine [Lamictal] 150 mg PO DAILY 08/16/20 08/16/20 History methadone 150 mg 08/16/20 History Physical Exam Vital Signs and I&O and Narrative: Vital Signs and I&O: Vital Signs Temp 97.7 F 08/16/20 10:36 Pulse 88 08/16/20 10:36 Resp 16 08/16/20 10:36 BP 102/64 08/16/20 10:36 Pulse Ox 97 08/16/20 07:52 Intake & Output 08/15/20 08/16/20 08/16/20 18:59 06:59 18:59 Intake Total 1049 / 1049 Balance 1049 / 1049 Weight 96.162 kg Intake: Intake, IV Amoun t 1049 / 1049 [id number] so dium 1 gm In 0.9 50 / 50 % Sodium Chlor scottie 50 ml @ 100 mls/hr IV ONCE ONE Rx#: [id number] 0.9 % Sodium C hloride 1,000 ml 999 / 999 @ 999 mls/hr I VCONT .Q1H1M LILA Rx#:[id number] Body Mass Index 33.2 awake and alert and oriented x3 but somewhat lethargic skin without rash or wound or bite neurologic is nonfocal including cranial nerves he had mild neck vein distension and somewhat diminished bilateral carotid upstrokes indicating diminished systolic reserve but no adenopathy chest percussed equally with no clinical pleural effusion and no adventitious sounds cardiac exam normal S1 normal S2 no gallops no murmurs no rubs and bedside echo showed mild diffuse hypokinesis with 45% ejection fraction and mild to moderate dilatation of right ventricle but no significant degree of pulmonary hypertension no primary valve or pericardial disease just evidence of biventricular dysfunction abdomen diffusely tender but no palpable organomegaly and no guarding extremities with no cyanosis and no clubbing and no edema EKG with normal sinus rhythm and nonspecific ST-T flattening in the precordium Results Labs Labs: Laboratory Tests 08/16/20 08/16/20 08/16/20 07:27 07:27 07:27 WBC 13.1 H RBC 4.58 L Hgb 13.2 L Hct 41.8 L MCV 91.3 MCH 28.8 MCHC 31.6 RDW 13.3 Plt Count 128 L MPV 10.3 Immature Gran % (Auto) 0.4 Neut % (Auto) 75.8 H Lymph % (Auto) 15.7 L [place] % (Auto) 8.0 Eos % (Auto) 0.0 Baso % (Auto) 0.1 Neut # (Auto) 9.9 H Lymph # (Auto) 2.1 [place] # (Auto) 1.1 Eos # (Auto) 0.0 Baso # (Auto) 0.0 Abs Immat Gran (auto) 0.05 H Absolute Nucleated RBC 0.000 Nucleated RBC % (auto) 0.0 PT 23.5 H INR 2.0 H APTT 40.3 H D-Dimer 65258 ABG pH ABG pCO2 ABG pO2 ABG HCO3 ABG O2 Saturation ABG Base Excess VBG pH VBG pCO2 VBG Oxygen Liters/Min VBG pO2 VBG HCO3 VBG O2 Saturation VBG Base Excess Carboxyhemoglobin Oxygen Given Sodium 135 Potassium 5.2 H Chloride 95 L Carbon Dioxide 27 Anion Gap 18 BUN 31 H Creatinine 2.28 H Estim Creat Clear Calc 54.7 Estimated GFR 35 Random Glucose 66 Lactic Acid Calcium 7.6 L Magnesium 2.3 Ferritin > 18096 H Total Bilirubin 0.5 Direct Bilirubin 0.2 AST 58189 H ALT 6793 H Alkaline Phosphatase 93 Lactate Dehydrogenase 94839 H Total Creatine Kinase 2260 H Troponin I High Sens B-Natriuretic Peptide Total Protein 7.3 Albumin 4.1 Lipase 114 H Procalcitonin TSH 0.31 L Acetaminophen 18 Acetone, Qual Negative Respiratory Panel Rider Adenovirus (Rapid PCR) B.pert (TEM-PCR) B.parapertussis DNA PCR C. pneumoniae DNA (PCR) Coronavirus OC43 (PCR) Coronavirus HKU1 (PCR) Coronavirus 229E (PCR) Coronavirus NL63 (PCR) Human Metapneumovir PCR Influenza A (RT-PCR) Influenza B (RT-PCR) M. pneumoniae (PCR) Parainfluenza 1 (PCR) Parainfluenza 2 (PCR) Parainfluenza 3 (PCR) Parainfluenza 4 (PCR) RSV (PCR) Entero/Rhino (PCR) SARS-CoV-2 RNA (RT-PCR) 08/16/20 08/16/20 08/16/20 07:28 07:28 07:28 WBC RBC Hgb Hct MCV MCH MCHC RDW Plt Count MPV Immature Gran % (Auto) Neut % (Auto) Lymph % (Auto) [place] % (Auto) Eos % (Auto) Baso % (Auto) Neut # (Auto) Lymph # (Auto) [place] # (Auto) Eos # (Auto) Baso # (Auto) Abs Immat Gran (auto) Absolute Nucleated RBC Nucleated RBC % (auto) PT INR APTT D-Dimer ABG pH ABG pCO2 ABG pO2 ABG HCO3 ABG O2 Saturation ABG Base Excess VBG pH VBG pCO2 VBG Oxygen Liters/Min VBG pO2 VBG HCO3 VBG O2 Saturation VBG Base Excess Carboxyhemoglobin 1.8 Oxygen Given Sodium Potassium Chloride Carbon Dioxide Anion Gap BUN Creatinine Estim Creat Clear Calc Estimated GFR Random Glucose Lactic Acid 1.9 Calcium Magnesium Ferritin Total Bilirubin Direct Bilirubin AST ALT Alkaline Phosphatase Lactate Dehydrogenase Total Creatine Kinase Troponin I High Sens 2660.9 H B-Natriuretic Peptide 1488 H Total Protein Albumin Lipase Procalcitonin TSH Acetaminophen Acetone, Qual Respiratory Panel Rider Adenovirus (Rapid PCR) B.pert (TEM-PCR) B.parapertussis DNA PCR C. pneumoniae DNA (PCR) Coronavirus OC43 (PCR) Coronavirus HKU1 (PCR) Coronavirus 229E (PCR) Coronavirus NL63 (PCR) Human Metapneumovir PCR Influenza A (RT-PCR) Influenza B (RT-PCR) M. pneumoniae (PCR) Parainfluenza 1 (PCR) Parainfluenza 2 (PCR) Parainfluenza 3 (PCR) Parainfluenza 4 (PCR) RSV (PCR) Entero/Rhino (PCR) SARS-CoV-2 RNA (RT-PCR) 08/16/20 08/16/20 08/16/20 07:28 07:28 08:35 WBC RBC Hgb Hct MCV MCH MCHC RDW Plt Count MPV Immature Gran % (Auto) Neut % (Auto) Lymph % (Auto) [place] % (Auto) Eos % (Auto) Baso % (Auto) Neut # (Auto) Lymph # (Auto) [place] # (Auto) Eos # (Auto) Baso # (Auto) Abs Immat Gran (auto) Absolute Nucleated RBC Nucleated RBC % (auto) PT INR APTT D-Dimer ABG pH 7.21 L ABG pCO2 68 H* ABG pO2 67 L ABG HCO3 26 ABG O2 Saturation TNP ABG Base Excess -3.2 VBG pH 7.25 L VBG pCO2 71 VBG Oxygen Liters/Min VBG pO2 105 VBG HCO3 30 VBG O2 Saturation 96.8 VBG Base Excess 1.0 Carboxyhemoglobin Oxygen Given 3 L Sodium Potassium Chloride Carbon Dioxide Anion Gap BUN Creatinine Estim Creat Clear Calc Estimated GFR Random Glucose Lactic Acid Calcium Magnesium Ferritin Total Bilirubin Direct Bilirubin AST ALT Alkaline Phosphatase Lactate Dehydrogenase Total Creatine Kinase Troponin I High Sens B-Natriuretic Peptide Total Protein Albumin Lipase Procalcitonin 17.44 TSH Acetaminophen Acetone, Qual Respiratory Panel Rider Adenovirus (Rapid PCR) B.pert (TEM-PCR) B.parapertussis DNA PCR C. pneumoniae DNA (PCR) Coronavirus OC43 (PCR) Coronavirus HKU1 (PCR) Coronavirus 229E (PCR) Coronavirus NL63 (PCR) Human Metapneumovir PCR Influenza A (RT-PCR) Influenza B (RT-PCR) M. pneumoniae (PCR) Parainfluenza 1 (PCR) Parainfluenza 2 (PCR) Parainfluenza 3 (PCR) Parainfluenza 4 (PCR) RSV (PCR) Entero/Rhino (PCR) SARS-CoV-2 RNA (RT-PCR) 08/16/20 09:44 WBC RBC Hgb Hct MCV MCH MCHC RDW Plt Count MPV Immature Gran % (Auto) Neut % (Auto) Lymph % (Auto) [place] % (Auto) Eos % (Auto) Baso % (Auto) Neut # (Auto) Lymph # (Auto) [place] # (Auto) Eos # (Auto) Baso # (Auto) Abs Immat Gran (auto) Absolute Nucleated RBC Nucleated RBC % (auto) PT INR APTT D-Dimer ABG pH ABG pCO2 ABG pO2 ABG HCO3 ABG O2 Saturation ABG Base Excess VBG pH VBG pCO2 VBG Oxygen Liters/Min VBG pO2 VBG HCO3 VBG O2 Saturation VBG Base Excess Carboxyhemoglobin Oxygen Given Sodium Potassium Chloride Carbon Dioxide Anion Gap BUN Creatinine Estim Creat Clear Calc Estimated GFR Random Glucose Lactic Acid Calcium Magnesium Ferritin Total Bilirubin Direct Bilirubin AST ALT Alkaline Phosphatase Lactate Dehydrogenase Total Creatine Kinase Troponin I High Sens B-Natriuretic Peptide Total Protein Albumin Lipase Procalcitonin TSH Acetaminophen Acetone, Qual Respiratory Panel Rider See Note Adenovirus (Rapid PCR) Not Detected B.pert (TEM-PCR) Not Detected B.parapertussis DNA PCR Not Detected C. pneumoniae DNA (PCR) Not Detected Coronavirus OC43 (PCR) Not Detected Coronavirus HKU1 (PCR) Not Detected Coronavirus 229E (PCR) Not Detected Coronavirus NL63 (PCR) Not Detected Human Metapneumovir PCR Not Detected Influenza A (RT-PCR) Not Detected Influenza B (RT-PCR) Not Detected M. pneumoniae (PCR) Not Detected Parainfluenza 1 (PCR) Not Detected Parainfluenza 2 (PCR) Not Detected Parainfluenza 3 (PCR) Not Detected Parainfluenza 4 (PCR) Not Detected RSV (PCR) Not Detected Entero/Rhino (PCR) Not Detected SARS-CoV-2 RNA (RT-PCR) Not Detected ABG ABG results: acute hypercarbic/ hypoxic respiratory failure Attestation: I personally reviewed and interpreted this ABG as follows: ECG Attestation: I personally reviewed and interpreted this ECG as follows: ECG interpretation date: 08/16/20 Interpretation: normal sinus rhythm with nonspecific ST-T flattening in the precordium Imaging Chest x-ray: Attestation: I personally reviewed and interpreted this imaging study as follows: ( very minimal peribronchial infiltrates bilaterally lower lobes but benign-appearing abdomen) Assessment and Plan (1) Acute hepatic failure: Problem details: because of elevated ammonia 1 dose of mannitol was given and because of elevated CVP could not give 3% saline and dialysis will be considered if he remains in this hospital lactulose was started as well Status: Acute (2) Hepatitis: Problem details: Probably related to underlying sepsis syndrome which appears to be overwhelming with impending possible DIC with thrombocytopenia and elevated INR There could be tick borne process such as anaplasma,bacterial sepsis such as MRSA or neisseria Fulminant HIV TB Patient immune compromise due to drug use Hepatitis A,B ,C possible also Status: Acute (3) Elevated troponin: Problem details: clear-cut myocarditis and supporting cardiac output with Levophed and small dose of maintenance fluid at 40 cc/hour Status: Acute (4) Rhabdomyolysis: Qualifiers: Rhabdomyolysis type: non-traumatic Qualified Code(s): M62.82 - Rhabdomyolysis Status: Acute (5) Acute renal failure: Qualifiers: Acute renal failure type: unspecified Qualified Code(s): N17.9 - Acute kidney failure, unspecified Problem details: considering dialysis if he remains in this hospital otherwise will treat him expectantly with I inotropic and pressor support Status: Acute (6) Hypoxia: Problem details: on nasal high-flow oxygen saturations are 97% and will check another blood gas Status: Acute (7) Viral infection: Problem details: entire viral pathogen survey is negative Status: Acute (8) Myocarditis: Status: Acute (9) Acute respiratory failure, unspecified whether with hypoxia or hypercapnia: Problem details: may intubate if blood gas or mental status deteriorate Status: Acute (10) Methadone dependence: Problem details: continue his maintenance Status: Acute
--- NOTE | 2020-08-16 11:58 | PC.NURSE ---
PT REMAINS AROUSABLE AND VERBAL HE IS PALE AND DRY [place] CATH IS IN PLACE AND OUTPUT NOTED ANTIBIOTICS ARE INFUSING
[2020-08-16 12:03] LABS: Appearance Urine CLOUDY; Color Urine YELLOW; Glucose Urine UA NEG (NEG); Leukocyte Esterase Urine NEG (NEG); Nitrite Urine NEG (NEG); PH 5.5 (5.0-8.0); Specific Gravity - Urine >= 1.030 (1.005-1.025); Urine Blood 2+ (NEG); Urine Ketones 5 MG/DL (NEG); Urine Protein 1+ MG/DL (NEG-TRACE)
[2020-08-16 12:14] LABS: Amorphous Sediment Urine 2+ /LPF; WBC Urine 0-2 /HPF (0-4)
[2020-08-16 12:35] LABS: Fibrinogen 341 MG/DL (259-690)
[2020-08-16 12:38] LABS: Amphetamine Screen Urine Not Detected (Not Detect); Barbiturates, Urine Not Detected (Not Detect); Benzodiazepines Screen Urine POSITIVE (Not Detect); Cannabinoid Screen Urine Not Detected (Not Detect); Cocaine Screen Urine Not Detected (Not Detect); Opiate Screen Urine Not Detected (Not Detect); Phencyclidine Screen Urine Not Detected (Not Detect)
--- NOTE | 2020-08-16 12:38 | PC.NURSE ---
PT'S MOTHER WILLIS JULIEN CALLED FROM [phone] AND SHE WAS UPDATED ON PT'S STATUS. PT IS AWARE OF HIS MOTHER CALLING AND GAVE PERMISSION FOR THIS RN TO SPEAK WITH HIS MOM,.
[2020-08-16 12:51] LABS: Ammonia 302 umol/L (13-55)
[2020-08-16] MEDS: Doxycycline Hyclate 100 MG in 0.9 % Sodium Chloride 250 ML 250 MG IV (13:03)
[2020-08-16 13:29] LABS: HBS Num1 1.89 mIU/mL (0-7.99); HBc Num1 0.11 S/CO (0.00-0.79); HBsAGNum1 0.27 S/CO (0.00-0.99); HIV AB/AG Nonreactive (Nonreactive); HIV Num 1 0.09 S/CO (0.00-0.99); Hepatitis B Core Antibody Nonreactive (Nonreactive); Hepatitis B Surface Antigen Negative (Negative); ~Hepatitis B Surface Antibody NONREACTIVE (Nonreactive)
[2020-08-16 14:03] LABS: ~HepC Num1 0.07 S/CO (0.00-0.79); ~Hepatitis C Antibody Nonreactive (Nonreactive)
--- NOTE | 2020-08-16 14:40 | PC.NURSE ---
PT STATES THAT HE GETS HIS METHADONE FROM [facility] IN [place] AT [address] [place] [address]. [phone].
[2020-08-16] MEDS: Enoxaparin Sodium 40 MG/0.4 ML SYRINGE SUBCUT (14:41)
[2020-08-16] MEDS: Dextrose 5 % and 0.45 % NaCl 1,000 ML 40 ML IVCONT (14:42)
[2020-08-16] MEDS: Lactulose 20 GM/30 ML SOLUTION PO ×2 (14:42→19:51)
[2020-08-16] MEDS: 0.9 % Sodium Chloride Flush 3 ML SYRINGE 2 ML IVFLUSH (14:42)
--- NOTE | 2020-08-16 14:57 | PC.NURSE ---
ADMITTED TO ICU NO BM NO U/O MD AWARE AFEBRILE SR ON VASOPRESSIN SOFT BLOOD PRESSURE ECDB, PLACED ON HIGH FLOW O2 45L 50% SHALLOW RESPIRATION WITH DECREASED LOC- MD AWARE FATHER AT BEDSIDE HCP FORM FILLED OUT PT OKAY SPEAKING WITH FATHER ABOUT PT STARTED ON D5 .45 SALINE AT 40/HR CVP ELEVATED AT 14 MD AWARE
[2020-08-16] MEDS: MannitoL 12.5 GM/50 ML VIAL IV (15:16)
--- NOTE | 2020-08-16 15:24 | PC.NURSE ---
rSH NOTED ON LEFT POSTERIOR ARM AND UPPER BACK MD AWARE
--- NOTE | 2020-08-16 15:42 | W.PM.IDCN ---
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 He is COVID negative and no one else is ill Review of Systems Review of Systems: Yes all other systems are reviewed and are negative Eyes: Eyes: Reports no additional eye complaints ENT: Denies sinus pressure, Denies sore throat and Denies throat swelling Cardiovascular: Cardiovascular: Denies no additional cardiovascular complaints and Reports dyspnea Respiratory: Respiratory: Denies chest congestion and Reports dyspnea Gastrointestinal: Gastrointestinal: Denies no additional gastrointestinal complaints Genitourinary: Genitourinary: Reports no additional male genitourinary complaints Musculoskeletal: Musculoskeletal: Denies joint swelling, Reports muscle cramps and Reports muscle weakness Integumentary/Breasts: Skin/Breast: Reports system reviewed and no additional complaints, except as docu Neurologic: Reports system reviewed and no additional complaints, except as documented Psychiatric: Psychiatric: Reports no additional psychiatric complaints Hematologic/Lymphatic: Hematologic/Lymphatic: Reports no additional hematologic/lymphatic complaints Allergic/Immunologic: Allergic/Immunologic: Denies throat swelling PMFSH Past Medical History Medical History Anxiety Asthma Depression Social History Social History Alcohol intake: unknown Smoking Status: Current some day smoker Tobacco Type: E-Cigarette Use of substances other than those prescribed or required for medical reasons: Unknown Substance Use Type Other:: former abuse Advance Directives: No Advance Directives Information Provided: No Travel History Ebola Risk: Travel/Contact With Anyone From Affected Area/s: No Has Patient Experienced Ebola Symptoms: No History of recent travel: No Meds Allergies Allergy/AdvReac Type Severity Reaction Status Date / Time animal dander [ANIMAL HAIR] Allergy Intermediate DIFFICULTY Verified 08/16/20 07:00 BREATHING feathers [FEATHERS] Allergy Intermediate DIFFICULTY Verified 08/16/20 07:00 BREATHING del cid [DEL CID] Allergy Intermediate DIFFICULTY Verified 08/16/20 07:00 BREATHING grass pollen [GRASS POLLEN] Allergy Intermediate DIFFICULTY Verified 08/16/20 07:00 BREATHING tree and shrub pollen [TREES] Allergy Intermediate DIFFICULTY Verified 08/16/20 07:00 BREATHING amoxicillin [Amoxicillin] Allergy Unknown HIVES Verified 08/16/20 07:00 Penicillins Allergy Unknown HIVES Verified 08/16/20 07:00 Home Medications Medication Instructions Recorded Confirmed Type aripiprazole [Abilify] 4 mg PO DAILY 08/16/20 08/16/20 History clonazepam [Klonopin] 1 mg PO TID 08/16/20 08/16/20 History gabapentin 300 mg PO TID 08/16/20 08/16/20 History lamotrigine [Lamictal] 150 mg PO DAILY 08/16/20 08/16/20 History methadone 150 mg 08/16/20 History Physical Exam Vital Signs and I&O and Narrative: Vital Signs and I&O: Vital Signs Temp 97.2 F 08/16/20 15:00 Pulse 78 08/16/20 15:00 Resp 12 08/16/20 15:00 BP 110/77 08/16/20 15:00 Pulse Ox 93 08/16/20 13:58 Intake & Output 08/15/20 08/16/20 08/16/20 18:59 06:59 18:59 Intake Total 1549 / 1549 Output Total 45 / 45 Balance 1504 / 1504 Urine Output (Aver age ml/kg/hr) 0.04 Weight 212 lb 224 lb 10.417 oz Intake: Intake, Oral [place] unt 0 / 0 Intake, IV Amoun t 1549 / 1549 Azithromycin 5 00 mg In 0.9 % 250 / 250 Sodium Chlorid e 250 ml @ 250 mls/hr IV ONCE ONE Rx#: [id number] Doxycycline Hy clate 100 mg In 0 250 / 250 .9 % Sodium Ch loride 250 ml @ 250 mls/hr IV BID ONE Rx#: [id number] cefTRIAXone so dium 1 gm In 0.9 50 / 50 % Sodium Chlor [place] 50 ml @ 100 mls/hr IV ONCE ONE Rx#: [id number] 0.9 % Sodium C hloride 1,000 ml 999 / 999 @ 999 mls/hr I VCONT .Q1H1M LILA Rx#:[id number] Output: Output, Urine Am ount (Catheter) 45 / 45 Urethral 45 / 45 Other: Urine Color Cloudy Body Mass Index 35.2 Const: General: in distress HENMT: Head: Yes normocephalic Ears: hearing grossly normal bilaterally General nose exam: Normal external nose present Face and sinus: Yes normal facial exam Mouth: lip abnormal (lips blue), oropharynx normal and moist mucous membranes Resp: Effort & Inspection: able to speak in complete sentences and decreased respiratory effort Cardio: Jugular venous distension: no JVD Rate: regular rate and tachycardic GI: Inspection: Yes normal to inspection Auscultation: normal bowel sounds Skin: General skin exam: rashes and/or lesions noted (rubor over chest and upper body) Assessment and Plan (1) Hepatitis: Problem details: Probably related to underlying sepsis syndrome which appears to be overwhelming with impending possible DIC with thrombocytopenia and elevated INR There could be tick borne process such as anaplasma,bacterial sepsis such as MRSA or neisseria Fulminant HIV TB Patient immune compromise due to drug use Hepatitis A,B ,C possible also Status: Acute Sepsis syndrome Would give Doxycycline,Vancomycin and Zosyn Check HIV,T spot, Hepatitis A,B,C Workup HUS/TTP/Collagen vascular (2) Elevated troponin: Status: Acute (3) Rhabdomyolysis: Qualifiers: Rhabdomyolysis type: non-traumatic Qualified Code(s): M62.82 - Rhabdomyolysis Status: Acute (4) Acute renal failure: Qualifiers: Acute renal failure type: unspecified Qualified Code(s): N17.9 - Acute kidney failure, unspecified Status: Acute (5) Hypoxia: Status: Acute
[2020-08-16 17:01] LABS: Base Excess VBG -1.6 mmol/L; HCO3 VBG 29 mmol/L; Oxygen Saturation VBG 96.7 %; PCO2 VBG 79 mmhg; PO2 VBG 111 mmhg
[2020-08-16 17:02] LABS: Baso%MD 0.1 %; Hematocrit 38.3 % (42-52); Hemoglobin 12.2 g/dl (14.0-18.0); IG%MD 0.3 %; Lymph%MD 17.7 %; Mean Corpuscular HGB Conc 31.9 g/dl (31.0-36.0); Mean Corpuscular Hemoglobin 29.5 pg (27.0-33.0); Mean Corpuscular Volume 92.5 fL (80-98); Mean Platelet Volume 10.5 fL (9.4-12.4); Mono%MD 7.4 %; Neut%MD 74.5 %; Red Blood Count 4.14 X10*6/uL (4.60-5.80); Red Cell Distribution Width 13.2 % (11.0-16.0); White Blood Count 10.6 X10*3/uL (4.8-10.8)
[2020-08-16 17:05] LABS: pH VBG 7.18 (7.32-7.43)
[2020-08-16 17:11] LABS: Immature Retic Fraction 10.9 % (2.3-13.4); Retic HGB Equivalent 33.6 pg (30.0-35.0); Reticulocyte Percent 1.2 % (0.5-1.8); Reticulocytes Absolute 0.049 X10*6/uL (0.026-0.095)
--- NOTE | 2020-08-16 17:11 | P.CONNP_ITS ---
History of Present Illness Reason for Consult Consult date: 08/16/20 Reason for consult: DOUGIE Chief Complaint Chief complaint: DOESNT FEEL WELL,LOW O2SAT(92%ON 4LPM) History of Present Illness Narrative: Seen and examined. Case d/w ICU amd info obtained from ICU staff and EHR. 25 y/o presents with hypoxia and gen weakness malaise that has prog worsend over past 1-2 days. Labs on adm noted c/w fulminant liver failure, severe elevated ammonia ( 300) and Oliguric DOUGIE. Review of Systems Reports system reviewed and no additional complaints, except as documented PMF Past Medical History Medical History (Updated 08/16/20 @ 17:18 by Volodymyr Zheng MD) Anxiety Asthma Depression Methadone dependence Family History Pertinent family history: none Social History Social History (Updated 08/16/20 @ 16:46 by Barbie Cherry MD) Alcohol intake: unknown Smoking Status: Current some day smoker Tobacco Type: E-Cigarette Use of substances other than those prescribed or required for medical reasons: Yes Substance Use Type Other:: former abuse Advance Directives: No Advance Directives Information Provided: No Travel History Ebola Risk: Travel/Contact With Anyone From Affected Area/s: No Has Patient Experienced Ebola Symptoms: No Meds Allergies Allergy/AdvReac Type Severity Reaction Status Date / Time animal dander [ANIMAL HAIR] Allergy Intermediate DIFFICULTY Verified 08/16/20 07:00 BREATHING feathers [FEATHERS] Allergy Intermediate DIFFICULTY Verified 08/16/20 07:00 BREATHING del cid [DEL CID] Allergy Intermediate DIFFICULTY Verified 08/16/20 07:00 BREATHING grass pollen [GRASS POLLEN] Allergy Intermediate DIFFICULTY Verified 08/16/20 07:00 BREATHING tree and shrub pollen [TREES] Allergy Intermediate DIFFICULTY Verified 08/16/20 07:00 BREATHING amoxicillin [Amoxicillin] Allergy Unknown HIVES Verified 08/16/20 07:00 Penicillins Allergy Unknown HIVES Verified 08/16/20 07:00 Home Medications Medication Instructions Recorded Confirmed Type aripiprazole [Abilify] 4 mg PO DAILY 08/16/20 08/16/20 History clonazepam [Klonopin] 1 mg PO TID 08/16/20 08/16/20 History gabapentin 300 mg PO TID 08/16/20 08/16/20 History lamotrigine [Lamictal] 150 mg PO DAILY 08/16/20 08/16/20 History methadone 150 mg 08/16/20 History Physical Exam Vital Signs and I&O: Vital Signs Temp 97.2 F 08/16/20 15:00 Pulse 78 08/16/20 15:00 Resp 26 H 08/16/20 15:57 BP 110/77 08/16/20 15:00 Pulse Ox 93 08/16/20 13:58 Intake & Output 08/15/20 08/16/20 08/16/20 18:59 06:59 18:59 Intake Total 1549 / 1549 Output Total 45 / 45 Balance 1504 / 1504 Urine Output (Average ml/kg/hr) 0.04 Weight 96.162 kg 101.9 kg Intake: Intake, Oral Amount 0 / 0 Intake, IV Amount 1549 / 1549 Azithromycin 500 mg In 0.9 % 250 / 250 Sodium Chloride 250 ml @ 250 mls/hr IV ONCE ONE Rx#: [id number] Doxycycline Hyclate 100 mg In 0 250 / 250 .9 % Sodium Chloride 250 ml @ 250 mls/hr IV BID ONE Rx#: [id number] cefTRIAXone sodium 1 gm In 0.9 50 / 50 % Sodium Chloride 50 ml @ 100 mls/hr IV ONCE ONE Rx#: [id number] 0.9 % Sodium Chloride 1,000 ml 999 / 999 @ 999 mls/hr IVCONT .Q1H1M LILA Rx#:[id number] Output: Output, Urine Amount (Catheter) 45 / 45 Urethral 45 / 45 Other: Urine Color Cloudy Body Mass Index 35.2 lethargic skin without rash or wound or bite he had mild neck vein distension and somewhat diminished bilateral carotid upstrokes indicating diminished systolic reserve but no adenopathy chest percussed equally with no clinical pleural effusion and no adventitious sounds cardiac exam normal S1 normal S2 no gallops no murmurs no rubs and bedside abdomen diffusely tender but no palpable organomegaly and no guarding extremities with no cyanosis and no clubbing and no edema Const General: in distress HENMT Head: Yes normocephalic Ears: hearing grossly normal bilaterally General nose exam: Normal external nose present Face and sinus: Yes normal facial exam Mouth: lip abnormal (lips blue), oropharynx normal and moist mucous membranes Resp Effort & Inspection: decreased respiratory effort Cardio Jugular venous distension: no JVD Rate: regular rate and tachycardic GI Inspection: Yes normal to inspection Auscultation: normal bowel sounds Results Lab Results Result Diagrams: 08/16/20 07:27 08/16/20 07:27 Lab results: Chemistry 08/16/20 07:27 Sodium 135 Potassium 5.2 H Carbon Dioxide 27 BUN 31 H Creatinine 2.28 H Calcium 7.6 L Hematology 08/16/20 07:27 WBC 13.1 H Hgb 13.2 L Plt Count 128 L Urinalysis 08/16/20 11:48 Urine Color YELLOW Urine Appearance CLOUDY Urine pH 5.5 Ur Specific [place] >= 1.030 H Urine Protein 1+ H Urine Glucose (UA) NEG Urine Ketones 5 Urine Blood 2+ H Urine Nitrite NEG Ur Leukocyte Esterase NEG Urine RBC 5-9 H Urine WBC 0-2 Ur Squamous Epith Cells NONE Assessment and Plan (1) Methadone dependence: Status: Acute (2) Acute respiratory failure, unspecified whether with hypoxia or hypercapnia: Problem details: may intubate if blood gas or mental status deteriorate Status: Acute (3) Myocarditis: Status: Acute (4) Acute hepatic failure: Status: Acute (5) Hepatitis: Status: Acute (6) Elevated troponin: Problem details: Status: Acute (7) Rhabdomyolysis: Qualifiers: Rhabdomyolysis type: non-traumatic Qualified Code(s): M62.82 - Rhabdomyolysis Status: Acute (8) Acute renal failure: Qualifiers: Acute renal failure type: unspecified Qualified Code(s): N17.9 - Acute kidney failure, unspecified Problem details: Status: Acute (9) Hypoxia: Problem details: Status: Acute 1. Fulmiant Hepatic Failure: unclear etiol; toxin, viral, auto-immune; acute and severity of liver faiilure is c/w fulminant failure and needs to be xferred to a liver xplant center; w/u thus far does not idenitfy cause 2. AMS: definite concern for cerebral edema from fulminat hepatic failure, severe elevated ammonia and increasing pCO2 ( hypercapnic resp failure) 3. Severe hyperammonia: d/t liver faiure..doubt this is d/r UCD ( urea cycle disorder) 4. Rhabdo 5. Oliguric DOUGIE: HRS type 1 vs multifact/ischemic ATN REC: xfer to liver xplant prorgram; urgent HD depending on timing of xfer to liver xplant center; treatment of impending cerebral edema...intubation and control of PCO2; may need IV mannitol and/or 3% saline will go ahead with acute HD for treatment of hyperammonia state but ideally would prefer CRRT ( not avail) ...timing of HD is dependent on timing of xfer to [facility]..if its delayed then emergent HD tonight o/w will let [facility] team assess and start HD/CRRT case d/w Dr Cherry in detail
[2020-08-16 17:16] LABS: Platelet Count 99 X10*3/uL (160-400)
[2020-08-16 17:24] LABS: Anion Gap 15 (12-20); Blood Urea Nitrogen 38 mg/dL (9-16); Carbon Dioxide 27 mmol/L (22-29); Chloride 95 mmol/L (96-108); Creatinine Clr Calc Pharmacy 40.6; Estimated Glomerular Filt Rate 24; Glucose Random 133 mg/dL (60-115); Potassium 5.6 mmol/l (3.3-5.1); Sodium 131 mmol/L (135-145)
[2020-08-16] MEDS: Acetylcysteine 15,000 MG in Dextrose 5 % 200 ML 275 MG IV (17:26)
--- NOTE | 2020-08-16 17:46 | XR_ITS ---
EXAMINATION: XR CHEST CLINICAL INFORMATION: Post intubation COMPARISON: Chest x-ray 08/16/2020. CT scan abdomen pelvis 08/16/2020 TECHNIQUE: Frontal portable view of the chest was obtained. 5:50 PM FINDINGS: Tubes and lines: 1. Endotracheal tube catheter 1 cm above xavi. 2. Right IJ catheter tip approximate 2.5 cm above the cavoatrial junction. 3. Nasogastric tube in stomach. Lung volume is low. No significant central pulmonary vascular congestion. Linear opacities in the retrocardiac area consistent with the atelectasis as seen on CT chest from earlier today. No focal dense consolidation. There is no pleural effusion. IMPRESSION: 1. Endotracheal tube catheter 1 cm above xavi. 2. Right IJ catheter tip approximate 2.5 cm above the cavoatrial junction. 3. Nasogastric tube in stomach. 4. There is linear atelectasis at left lung base. No focal dense consolidation.
--- NOTE | 2020-08-16 17:48 | PC.NURSE ---
Critical ABGs given to Dr. Cherry. After discussion with patient and family, decision made to intubate. 1745 patient intubated, 7.5 ET tube, 23 at the lip, +yellow color change. Propofol infusing at 20mcg/kg/min. Soft wrist restraints applied. SR on monitor, BP maintaining well. Vent settings: AC 18 600 50% PEEP 0
[2020-08-16] MEDS: propofoL 1,000 MG/100 ML VIAL 12.23 MG IVCONT ×2 (18:11→20:46)
[2020-08-16] MEDS: propofoL 200 MG/20 ML VIAL 60 MG IVPUSH (18:15)
[2020-08-16] MEDS: Rocuronium Bromide 50 MG/5 ML VIAL IVPUSH (18:16)
[2020-08-16 19:40] LABS: Band Neutrophils Percent 6 % (3-5); Lymphocytes Absolute Manual 1.1 X10*3/uL (0.6-4.8); Lymphocytes Percent Manual 10 % (20-40); Monocytes Absolute Manual 0.4 X10*3/uL (0.0-1.2); Monocytes Percent Manual 4 % (2-11); Neutrophils Absolute Manual 9.1 X10*3/uL (2.2-7.9); Neutrophils Percent Manual 80 % (45-73)
[2020-08-16 19:41] LABS: Platelet Estimate NORMAL (NORMAL); Platelet Morphology Comment NORMAL; RBC Morphology NORMAL
[2020-08-16 21:06] LABS: Glucose, Whole Blood 179 mg/dL (60-115)
--- NOTE | 2020-08-16 22:55 | PC.NURSE ---
pt admitted to icu in poor condition and he deteriorated as the shift progressed/ stat echo done with 2cc of definity given/resp status poor and abgs poor pt entubated after poor abgs and shallow respers/[facility] called and pt transferred
--- NOTE | 2020-08-17 00:53 | PC.NURSE ---
Addendum: EMS requested 3 bottles of propofol to cover trip to [place] - 3 bottles of 100ml propofol given to EMS crew for transport.
[2020-08-17 18:25] LABS: Haptoglobin 171 mg/dL (43-212)
[2020-08-19 05:15] LABS: Lyme Abs Screen <0.90 index
[2020-08-19 08:20] LABS: Myoglobin, Quant. Random Urine 62 mcg/L (<28)
[2020-08-19 22:27] LABS: Legionella Ag Urine Not Detected (Not Detected)
[2020-08-21 15:47] LABS: Babesia IgG <1:64 titer (<1:64); Babesia IgM <1:20 titer (<1:20)
[2020-08-22 17:02] LABS: A. Phagocytophilum Ab IgG <1:64 (<1:64); A. Phagocytophilum Ab IgM <1:20 (<1:20); E. Chaffeensis Ab IgG <1:64 (<1:64); E. Chaffeensis Ab IgM <1:20 (<1:20)
[2020-08-29 12:17] LABS: Rocky Mtn. Spot. Fever IgG Ab Detected; Rocky Mtn.Spot. Fever IgM Ab Not Detected
== END 2020-08-16 20:45 | disposition short-term general hospital (02) | DRG 720 ==
LOC: HO.ED 11:03 → HO.ICU 11:46
PROVIDERS: Admitting Provider Internal Medicine Cardiovascular Disease; Emergency Provider Emergency Medicine; PCP Family Medicine; Visit Provider Internal Medicine Cardiovascular Disease
DX: A41.9 Sepsis, unspecified organism (principal); J96.01 Acute respiratory failure with hypoxia; D65 Disseminated intravascular coagulation [defibrination syndrome]; K72.00 Acute and subacute hepatic failure without coma; N17.9 Acute kidney failure, unspecified; M62.82 Rhabdomyolysis; F11.20 Opioid dependence, uncomplicated; Z20.828 Contact with and (suspected) exposure to other viral communicable diseases; F17.290 Nicotine dependence, other tobacco product, uncomplicated; Z71.6 Tobacco abuse counseling; Z88.0 Allergy status to penicillin; Z79.899 Other long term (current) drug therapy
CPT/HCPCS: 36415; 71045; 71250; 74176; 76705; 80048; 80076; 80307; 81001; 81003; 82009; 82140; 82375; 82550; 82728; 82803; 82947; 83010; 83605; 83615; 83690; 83735; 83874; 83880; 84145; 84443; 84484; 85007; 85025; 85027; 85045; 85379; 85384; 85610; 85730; 86618; 86666; 86704; 86706; 86753; 86757; 86803; 87040; 87086; 87340; 87389; 87449; 87633; 87635; 93005; 93010; 93306; 94003; 94660; 94799; 96361; 96365; 96375; 99285; 99291; 99292; G0480; J0132; J1650; J2150; J2405

== ENCOUNTER 2021-07-01 14:44 | Emergency (ER) | payer OTHER, SELFPAY ==
--- NOTE | ~2021-07-01 | XR_ITS ---
EXAMINATION: XR chest 1V CLINICAL INFORMATION: Shortness of breath COMPARISON: 08/16/2020 TECHNIQUE: XR chest 1V Tubes and lines: None Lungs and pleura: Mild prominence of the pulmonary vasculature without jasper failure. Heart and mediastinum: The mediastinum is within normal limits.. Bones/soft tissue: Skeletal structures included are normal for patient's age. XR/XR chest 1V IMPRESSION: Mild prominence of the pulmonary vasculature without jasper failure. No pleural effusion.
[2021-07-01 14:58] VITALS: BP 128/75; PULSE 92; RESP 18; TEMP 37.2; O2SAT 92; BMI 34.2
[2021-07-01 15:53] LABS: COVID-19 Test Negative (Negative)
--- NOTE | 2021-07-01 18:54 | ED.GENADULT ---
HPI - General Adult General Chief complaint: General Medical Stated complaint: ?infection Time Seen by Provider: 07/01/21 18:54 Source: patient Mode of arrival: ambulatory Limitations: no limitations History of Present Illness HPI narrative: Patient with history of asthma, complaining of sore throat since yesterday had a temperature of 101.5 degrees headache body aches nauseated [facility] COVID test was done which was negative patient already been vaccinated. Also complaining of rash over the extremities and the face Related Data Home Medications Medication Instructions Recorded Confirmed aripiprazole 2 mg tablet (Abilify) 4 mg PO DAILY 08/16/20 08/16/20 clonazepam 1 mg tablet (Klonopin) 1 mg PO TID 08/16/20 08/16/20 gabapentin 300 mg tablet 300 mg PO TID 08/16/20 08/16/20 lamotrigine 150 mg tablet 150 mg PO DAILY 08/16/20 08/16/20 (Lamictal) methadone 10 mg/mL injection 150 mg 08/16/20 solution Allergies Allergy/AdvReac Type Severity Reaction Status Date / Time animal dander [ANIMAL HAIR] Allergy Intermediate DIFFICULTY Verified 08/16/20 07:00 BREATHING feathers [FEATHERS] Allergy Intermediate DIFFICULTY Verified 08/16/20 07:00 BREATHING del cid [DEL CID] Allergy Intermediate DIFFICULTY Verified 08/16/20 07:00 BREATHING grass pollen [GRASS POLLEN] Allergy Intermediate DIFFICULTY Verified 08/16/20 07:00 BREATHING tree and shrub pollen [TREES] Allergy Intermediate DIFFICULTY Verified 08/16/20 07:00 BREATHING amoxicillin [Amoxicillin] Allergy Unknown HIVES Verified 08/16/20 07:00 Penicillins Allergy Unknown HIVES Verified 08/16/20 07:00 Review of Systems Review of Systems: Constitutional : No Weight loss, No Fever, No Chills ENT/Mouth : ++ sore throat, No Rhinorrhea Eyes: No Eye Pain, No Swelling Cardiovascular : No Chest Pain, no palpitations Respiratory : No Cough, No Sputum, no shortness of breath Gastrointestinal : no Nausea, No Vomiting, No Diarrhea, No abdominal Pain, no black stools Genitourinary : No Dysuria, No Urinary Frequency Musculoskeletal : No joint pain, No Myalgias, No Joint Swelling Skin : No Skin Lesions, No rash Neuro : + Weakness, No Numbness, No Dizziness, No Headache Psych : No Anxiety/Panic, No Depression Heme/Lymph: No Bruising, No Lymphadenopathy Endocrine : No Polyuria, No Polydipsia All other systems reviewed and are negative [facility] Past Medical History Medical History Anxiety Asthma Depression Methadone dependence Social History Social History Alcohol intake: unknown Advance Directives: No Advance Directives Information Provided: No Physical Exam Vital Signs: Vital Signs: Last Vital Signs Temp 98.8 F 07/01/21 19:04 Pulse 87 07/01/21 19:04 Resp 16 07/01/21 19:04 BP 140/81 H 07/01/21 19:04 Pulse Ox 94 07/01/21 19:04 Body Mass Index 34.2 Appearance: Alert. Oriented X3. No acute distress. Eyes: No pallor or icterus ENT: Pharynx slight erythema, Oral Mucosa moist Neck: Normal inspection. Neck supple. CVS: Normal heart rate and rhythm. Pulses normal. Respiratory: No respiratory distress. Equal air entry bilateral, no wheezing/rales/rhonchi Abdomen: Soft and nontender. Bowel sounds are present, no mass palpable, no CVA tenderness Skin: Skin warm and dry. Isn't a rash over the face and upper extremities Normal skin turgor. Extremities: No lower extremity edema. No calf tenderness Neuro: Oriented X 3. No motor deficit. No sensory deficit.No cerebellar signs , cranial nerves II-XII intact Medical Decision Making MDM Narrative Medical decision making narrative: Patient likely with viral syndrome chest x-ray negative nontoxic look COVID repeat test negative rapid strep is negative patient feels fine and feeling much better will discharge patient home Lab Data Lab results reviewed: Yes I reviewed the patient's lab results. Labs: Lab Results 07/01/21 07/01/21 Range/Units 15:03 19:09 COVID-19 (ISABEL) Negative (Negative) COVID-19 Clin Com See Note S. pyogenes GrpA KANDICE Negative (Negative) Discharge Plan Discharge Clinical Impression: Acute viral syndrome Patient Disposition: Home, Self-Care Instructions: Viral Syndrome (ED) Additional Instructions: Drink plenty of fluids Tylenol for fever Report to the ER if high-grade fever continues Prescriptions: No Action aripiprazole [Abilify] 2 mg Tablet 4 mg PO DAILY RF: 0 lamotrigine [Lamictal] 150 mg Tablet 150 mg PO DAILY RF: 0 methadone 10 mg/mL Solution 150 mg RF: 0 clonazepam [Klonopin] 1 mg Tablet 1 mg PO TID RF: 0 gabapentin 300 mg Tablet 300 mg PO TID RF: 0
[2021-07-01 19:04] VITALS: BP 140/81; PULSE 87; RESP 16; TEMP 37.1; O2SAT 94
[2021-07-01 19:22] LABS: IDNOW Serial# 9DD0AD1C; Strep A Nucleic Acid Negative (Negative)
== END 2021-07-01 19:45 | disposition home or self-care (01) ==
PROVIDERS: Emergency Provider Internal Medicine; PCP Family Medicine
DX: B34.9 Viral infection, unspecified (principal); F33.1 Major depressive disorder, recurrent, moderate; R51.9 Headache, unspecified; R21 Rash and other nonspecific skin eruption; Z20.822 Contact with and (suspected) exposure to COVID-19; Z79.899 Other long term (current) drug therapy
CPT/HCPCS: 36415; 71045; 87635; 87651; 99284

== ENCOUNTER 2022-05-31 08:34 | Emergency (ER) | payer OTHER, SELFPAY ==
--- NOTE | ~2022-05-31 | XR_ITS ---
EXAMINATION: XR FOOT, LEFT CLINICAL INFORMATION: Pain COMPARISON: None TECHNIQUE: AP, lateral, and oblique views of the left foot. FINDINGS: The bones and soft tissues are normal. No fracture. Alignment is anatomic. Joint spaces are maintained. XR/XR foot LT 2V IMPRESSION: No acute osseous abnormality of the left foot.
[2022-05-31 08:41] VITALS: BP 120/70; PULSE 81; RESP 16; TEMP 36.7; O2SAT 95; BMI 31.3
--- NOTE | 2022-05-31 09:29 | ED.EXTPRO ---
HPI - Extremity Problem General Chief complaint: Extremity Problem Stated complaint: shooting pain L foot and leg Time Seen by Provider: 05/31/22 09:29 Source: patient Mode of arrival: ambulatory Limitations: no limitations History of Present Illness HPI Narrative: 25-year-old male presents for right foot pain after falling out of bed. Patient woke up and had his foot wedged against his bed and his night stand. Patient states he can walk, but has numbness on the dorsum of his foot and pain in the arch of his foot, and that pain shoots up his calf when he flexes and extends his foot Related Data Home Medications Medication Instructions Recorded Confirmed aripiprazole 2 mg tablet (Abilify) 4 mg PO DAILY 08/16/20 08/16/20 clonazepam 1 mg tablet (Klonopin) 1 mg PO TID 08/16/20 08/16/20 gabapentin 300 mg tablet 300 mg PO TID 08/16/20 08/16/20 lamotrigine 150 mg tablet 150 mg PO DAILY 08/16/20 08/16/20 (Lamictal) methadone 10 mg/mL injection 150 mg 08/16/20 solution Previous Rx's Medication Instructions Recorded naproxen 500 mg tablet 500 mg PO BID 10 days #20 tabs 05/31/22 Allergies Allergy/AdvReac Type Severity Reaction Status Date / Time animal dander [ANIMAL HAIR] Allergy Intermediate DIFFICULTY Verified 04/16/22 13:43 BREATHING feathers [FEATHERS] Allergy Intermediate DIFFICULTY Verified 04/16/22 13:43 BREATHING del cid [DEL CID] Allergy Intermediate DIFFICULTY Verified 04/16/22 13:43 BREATHING grass pollen [GRASS POLLEN] Allergy Intermediate DIFFICULTY Verified 04/16/22 13:43 BREATHING tree and shrub pollen [TREES] Allergy Intermediate DIFFICULTY Verified 04/16/22 13:43 BREATHING amoxicillin [AMOXICILLIN] Allergy Mild ANAPHYLAXIS Unverified 04/16/22 13:43 penicillin V Allergy Unknown Verified 04/16/22 13:43 Penicillins [PCN] Allergy Unknown ANAPHYLAXIS Unverified 04/16/22 13:43 Review of Systems Constitutional: Constitutional: Denies body ache(s), Denies chills, Denies fatigue, Denies fever(s), Denies malaise and Denies weakness Eyes: Eyes: Denies diplopia Cardiovascular: Cardiovascular: Denies chest pain, Denies syncope, Denies leg edema, Denies lightheadedness, Denies Loss of Consciousness, Denies palpitations and Denies dyspnea Respiratory: Respiratory: Denies chest congestion, Denies cough and Denies dyspnea Gastrointestinal: Gastrointestinal: Denies abdominal pain, Denies hematochezia, Denies constipation, Denies diarrhea and Denies vomiting Musculoskeletal: Musculoskeletal: Reports numbness and Reports radiating pain into limb Comments: Left foot pain Neurologic: Denies confusion, Denies syncope, Reports numbness and Denies weakness Psychiatric: Psychiatric: Denies anxiety, Denies confusion and Denies depression Endocrine: Endocrine: Denies fatigue and Denies palpitations PMFSH Past Medical History Medical History Anxiety Asthma Depression Methadone dependence Social History Social History (System 04/16/22 @ 13:43 by Cordelia Pearce) Alcohol intake: unknown Advance Directives: No Advance Directives Information Provided: No Physical Exam Vital Signs: Vital Signs: Last Vital Signs Temp 98.0 F 05/31/22 08:41 Pulse 81 05/31/22 08:41 Resp 16 05/31/22 08:41 BP 120/70 05/31/22 08:41 Pulse Ox 95 05/31/22 08:41 O2 Del Method 05/31/22 08:41 BMI result Body Mass Index 31.3 Const: General: No confusion Nutritional Appearance: well nourished Orientation/consciousness: No confusion Limitations: no limitations Eyes: Conjunctivae: conjunctivae normal Pupils: Equal, round and reactive pupils present EOM: EOMs intact bilaterally Neck: Neck: Yes full ROM, Yes no lymphadenopathy and Yes supple Resp: Effort & Inspection: normal respiratory effort and able to speak in complete sentences Auscultation: clear to auscultation bilaterally, no crackles, no rales, no rhonchi and no wheezes Cardio: Rate: regular rate Rhythm: regular rhythm Heart sounds: S1 normal heart sound present and S2 normal heart sound present GI: Inspection: Yes normal to inspection Palpation (GI): Soft to palpation, nontender, no guarding and not rigid Percussion: Yes normal to percussion Auscultation: normal bowel sounds Skin: General skin exam: no rashes or lesions noted Neuro: General: No confusion Cranial nerves: Yes Equal, round and reactive pupils present Extrem: Left lower extremity: normal to inspection, normal capillary refill, no joint enlargement and foot Details: normal capillary refill, normal to inspection, tenderness Location: of the medial foot Location: in the mid-section and of the mid foot Location: dorsally, no edema, vascular exam Details: dorsalis pedis pulse present and posterior tibial pulse present, tendon exam (Patient can flex and extend, but has pain doing) and motor-sensory exam Details: light-touch normal; no unusual warmth, no ecchymosis and no crepitus Psych: Appearance: grossly normal Affect: normal affect Attitude: cooperative Thought process: Normal thought process present Course Course Course Narrative: 26-year-old male presents with left foot pain. Patient describes numbness on the dorsum of his left foot, pain in the arch of his left foot, and pain radiating up to his left leg when he flexes and extends his ankle. Patient very mildly swollen lateral ankle, x-ray is negative. Patient has intact left lower extremity pulses, sensation, motor strength, and DTRs. Patient can not ambulate. Provided boot, counseled rest, ice, compression, elevation, prescribed naproxen, follow-up with orthopedics. Reevaluation(s) Reevaluation #1: FINDINGS: The bones and soft tissues are normal. No fracture. Alignment is anatomic. Joint spaces are maintained.? XR/XR foot LT 2V IMPRESSION: No acute osseous abnormality of the left joce Discharge Plan Discharge Clinical Impression: Acute pain of left foot Patient Disposition: Home, Self-Care Instructions: R.I.C.E. Treatment (ED) Additional Instructions: I have referred you to orthopedics, [facility]. They should be calling you, but if you do not hear from them by Friday, please call them at the following number for a follow-up appointment [phone] Please wear the boot, and rest, ice, and elevate your left foot. I have prescribed naproxen to your pharmacy. Please return to the emergency room for any new or concerning symptoms. Prescriptions: New naproxen 500 mg tablet 500 mg PO BID 10 Days Qty: 20 0RF No Action aripiprazole [Abilify] 2 mg Tablet 4 mg PO DAILY lamotrigine [Lamictal] 150 mg Tablet 150 mg PO DAILY methadone 10 mg/mL Solution 150 mg clonazepam [Klonopin] 1 mg Tablet 1 mg PO TID gabapentin 300 mg Tablet 300 mg PO TID Referrals: Kay Lozano MD [Physician] -
== END 2022-05-31 10:45 | disposition home or self-care (01) ==
PROVIDERS: Emergency Provider Emergency Medicine Emergency Medical Services; PCP Family Medicine
DX: M79.672 Pain in left foot (principal); F11.20 Opioid dependence, uncomplicated
CPT/HCPCS: 73620; 99283; 99284

== ENCOUNTER 2023-01-16 07:20 | Emergency (ER) | payer OTHER, SELFPAY ==
--- NOTE | ~2023-01-16 | XR_ITS ---
EXAMINATION: XR CHEST CLINICAL INFORMATION: Chest pain COMPARISON: 07/01/2021 TECHNIQUE: Frontal view of the chest was obtained. FINDINGS: Heart size normal. Peribronchial thickening is seen. There is prominence of the central pulmonary vasculature but no interstitial edema. No consolidations, effusions or lung masses are seen. Compared to the 07/01/2021 study, mild vascular congestion appears improved. XR/XR chest 1V IMPRESSION: No acute intrathoracic disease. Mild central pulmonary vascular congestion and peribronchial thickening.
[2023-01-16 07:24] VITALS: BP 125/77; PULSE 110; RESP 20; TEMP 36.6; O2SAT 93; BMI 29.7
[2023-01-16 07:33] VITALS: BP 122/57; PULSE 100; RESP 12; TEMP 37.3; O2SAT 92
--- NOTE | 2023-01-16 07:52 | PC.NURSE ---
pt states asthma x 2 wks no relief with duoneb and rescue inhaler use. speaks in full sentences. 02 sat 89-92% on r/a, lungs - tight and exp wheezing all lobes. heart sounds regular. abd soft and non-tender. bs + x 4 quads. no edema noted. pt see by er md, pt/mother aware of plan of care.
--- NOTE | 2023-01-16 08:02 | ECG_ITS ---
Test Reason : SOB Blood Pressure : / mmHG Vent. Rate : 097 BPM Atrial Rate : 097 BPM P-R Int : 128 ms QRS Dur : 094 ms QT Int : 362 ms P-R-T Axes : 006 039 023 degrees QTc Int : 459 ms Artifact in tracing Normal sinus rhythm Nonspecific ST abnormality Borderline ECG When compared with ECG of 16-AUG-2020 08:13, Nonspecific ST and T wave abnormality improved Referred By: Taryn Coronel Electronically Signed By:MARIAN MOER
--- NOTE | 2023-01-16 08:03 | ED_ITS ---
HPI - Asthma General Chief Complaint: Asthma Stated Complaint: Asthma Time Seen by Provider: 01/16/23 07:34 History of Present Illness HPI Narrative: Patient is a 27-year-old male with a history asthma patient been admitted to the hospital multiple times. History of hepatitis history of rhabdo history of liver failure was sent to [place] for further evaluation approximately 3 years ago. Patient presented today with having increasing shortness of breath again. Wheezing. Patient claims that this is very similar to previous bouts of asthma. He has been admitted to the hospital proximally every year to 2 years. Patient baseline is on an inhaler. Denies any heart problem. No history of congestive heart failure. No fever no chills. Related Data Home Medications Medication Instructions Recorded Confirmed aripiprazole 2 mg tablet (Abilify) 4 mg PO DAILY 08/16/20 08/16/20 clonazepam 1 mg tablet (Klonopin) 1 mg PO TID 08/16/20 08/16/20 gabapentin 300 mg tablet 300 mg PO TID 08/16/20 08/16/20 lamotrigine 150 mg tablet 150 mg PO DAILY 08/16/20 08/16/20 (Lamictal) methadone 10 mg/mL injection 150 mg 08/16/20 solution Previous Rx's Medication Instructions Recorded naproxen 500 mg tablet 500 mg PO BID 10 days #20 tabs 05/31/22 prednisone 20 mg tablet 40 mg PO DAILY #10 tabs 01/16/23 Allergies Allergy/AdvReac Type Severity Reaction Status Date / Time animal dander [ANIMAL HAIR] Allergy Intermediate DIFFICULTY Verified 04/16/22 13:43 BREATHING feathers [FEATHERS] Allergy Intermediate DIFFICULTY Verified 04/16/22 13:43 BREATHING del cid [DEL CID] Allergy Intermediate DIFFICULTY Verified 04/16/22 13:43 BREATHING grass pollen [GRASS POLLEN] Allergy Intermediate DIFFICULTY Verified 04/16/22 13:43 BREATHING tree and shrub pollen [TREES] Allergy Intermediate DIFFICULTY Verified 04/16/22 13:43 BREATHING amoxicillin [AMOXICILLIN] Allergy Mild ANAPHYLAXIS Unverified 04/16/22 13:43 penicillin V Allergy Unknown Verified 04/16/22 13:43 Penicillins [PCN] Allergy Unknown ANAPHYLAXIS Unverified 04/16/22 13:43 Review of Systems Review of Systems: No fever no chills positive shortness of breath positive wheezing no recreational drug use. Positive smoking Yes all other systems are reviewed and are negative PMFSH Past Medical History Attestation statement: The following information was validated with the patient. Medical History Anxiety Asthma Depression Methadone dependence Social History Social History Alcohol intake: never Smoked in Last 30 Days: Yes Use of substances other than those prescribed or required for medical reasons: Yes Substance Use Type: Heroin Advance Directives: No Advance Directives Information Provided: Yes Physical Exam Vital Signs: Vital Signs: Last Vital Signs Temp 98.5 F 01/16/23 10:10 Pulse 96 01/16/23 10:10 Resp 18 01/16/23 10:10 BP 127/72 01/16/23 10:10 Pulse Ox 90 L 01/16/23 10:20 O2 Del Method 01/16/23 10:20 BMI result Body Mass Index 29.7 Appearance: Alert. Oriented X3. No acute distress. Eyes: Pupils equal, round and reactive to light. ENT: Pharynx normal. Neck: Normal inspection. Neck supple. No lymph nodes noted. No crepitus CVS: Normal heart rate and rhythm. Pulses normal. Normal S1 and S2 Respiratory: No respiratory distress. Positive diminished breath sounds bilaterally positive wheezing noted in all lung justin. Abdomen: Soft and nontender. No rigidity. No distention. good BS x4 Skin: Skin warm and dry. Normal skin color. Normal skin turgor. Extremities: No lower extremity edema. Neurovascular intact to all extremities. No Lacerations. No Rash Neuro: Oriented X 3. No motor deficit. No sensory deficit. Moving all e xtermities. No slurred speech Medications Administered Discontinued Medications Generic Name Dose Route Start Last Admin Trade Name Freq PRN Reason Stop Dose Admin Albuterol Sulfate 7.5 mg/ 0 mg 01/16/23 08:01 01/16/23 08:51 Ipratropium [place] 0.5 mg INHALE 01/16/23 08:02 7.5 each ONCE ONE Administration Magnesium Sulfate 2 gm in 50 mls @ 150 mls/hr 01/16/23 08:04 01/16/23 09:03 Magnesium Sulfate/H2o IV 01/16/23 08:23 Infused ONCE ONE Infusion Methylprednisolone Sodium Succinate 125 mg 01/16/23 08:01 01/16/23 08:08 Methylprednisolone Sod Succ 125 Mg/2 Ml Vial IVPUSH 01/16/23 08:02 125 mg ONCE ONE Administration Medical Decision Making Medical Decision Making [facility] Narrative: Positive history of asthma positive history of rhabdo, hepatitis. Will get baseline labs. Chest x-ray ordered. COVID test ordered. Will give steroids magnesium and a continuous nebulized treatment patient's O2 sats proximally 91% on room air. On exam there is diffuse wheezing diminished breath sound consistent with asthma. Will check a BnP for congestive heart failure. Patient's BMP is normal. There is no evidence for congestive heart failure. Chest x-ray showed no evidence of congestive heart failure. No pneumonia. Patient short of breath history of asthma. Given a continuous neb treatment along with steroids magnesium. Monitor very closely for the next hour to 2 hours. Symptoms improved dramatically. Able to ambulate without desatting. Patient troponin was negative. LFTs are normal. CK is normal. There is no evidence for cardiac cause of patient's symptoms. No evidence for rhabdomyolysis. Patient is to be discharged home. We will continue on steroid on an outpatient basis. Additional history was obtained from patient's family. Differential Diagnosis Differential Diagnoses: The differential diagnosis associated with the presentation includes Admission/Observation Consideration of admission/observation: Escalation of care including admission/observation considered Considered admission but patient's symptom improved dramatically Lab Data [facility] Lab Attestation statement: I reviewed the patient's lab results. 01/16/23 08:43 01/16/23 08:43 Labs: Lab Results 01/16/23 01/16/23 01/16/23 Range/Units 08:28 08:43 08:43 WBC 11.4 H (4.8-10.8) X10*3/uL RBC 4.58 L (4.60-5.80) X10*6/uL Hgb 13.1 L (14.0-18.0) g/dl Hct 40.2 L (42.0-52.0) % MCV 87.8 (80.0-98.0) fL MCH 28.6 (27.0-33.0) pg MCHC 32.6 (31.0-36.0) g/dl RDW 12.6 (11.0-16.0) % Plt Count 254 (160-400) X10*3/uL MPV 10.3 (9.4-12.4) fL Immature Gran % (Auto) 0.2 (0.0-0.4) % Neut % (Auto) 56.2 (45-73) % Lymph % (Auto) 28.6 (20-40) % [place] % (Auto) 6.9 (2-11) % Eos % (Auto) 7.7 H (0-4) % Baso % (Auto) 0.4 (0-2) % Lymph # (Auto) 3.3 (1.2-4.9) X10*3/uL [place] # (Auto) 0.8 (0.1-1.2) X10*3/uL Eos # (Auto) 0.9 H (0.0-0.4) X10*3/uL Baso # (Auto) 0.0 (0.0-0.2) X10*3/uL Abs Immat Gran (auto) 0.02 (0.00-0.03) X10*3/uL Absolute Neuts (auto) 6.4 (2.0-8.3) x10*3/uL Absolute Nucleated RBC 0.000 (0.0-0.012) X10*3/uL Nucleated RBC % (auto) 0.0 (0.0-0.2) /100WBC Sodium 140 (135-145) mmol/L Potassium 4.1 (3.3-5.1) mmol/L Chloride 101 (96-108) mmol/L Carbon Dioxide 30 H (22-29) mmol/L Anion Gap 13 (12-20) BUN 10 (9-16) mg/dL Creatinine 0.78 (0.5-1.4) mg/dL Estim Creat Clear Calc 149.1 Estimated GFR > 60 Random Glucose 110 (60-115) mg/dL Calcium 8.7 D (8.4-10.2) mg/dL Total Bilirubin 0.3 (0.0-1.0) mg/dL Direct Bilirubin < 0.2 (0.0-0.5) mg/dL AST 19 (5-37) U/L ALT 27 (0-40) U/L Alkaline Phosphatase 105 (39-117) U/L Total Creatine Kinase 119 (38-174) U/L Troponin I High Sens (<3.5-35.0) ng/L B-Natriuretic Peptide < 10 (<100) pg/mL Total Protein 7.1 (6.5-8.0) g/dL Albumin 4.1 (3.5-5.0) g/dL Influenza Type A (PCR) (Negative) Influenza Type B (PCR) (Negative) RSV RNA Qual (PCR) (Negative) SARS-CoV-2 RNA (RT-PCR) (Negative) 01/16/23 01/16/23 Range/Units 08:43 08:43 WBC (4.8-10.8) X10*3/uL RBC (4.60-5.80) X10*6/uL Hgb (14.0-18.0) g/dl Hct (42.0-52.0) % MCV (80.0-98.0) fL MCH (27.0-33.0) pg MCHC (31.0-36.0) g/dl RDW (11.0-16.0) % Plt Count (160-400) X10*3/uL MPV (9.4-12.4) fL Immature Gran % (Auto) (0.0-0.4) % Neut % (Auto) (45-73) % Lymph % (Auto) (20-40) % [place] % (Auto) (2-11) % Eos % (Auto) (0-4) % Baso % (Auto) (0-2) % Lymph # (Auto) (1.2-4.9) X10*3/uL [place] # (Auto) (0.1-1.2) X10*3/uL Eos # (Auto) (0.0-0.4) X10*3/uL Baso # (Auto) (0.0-0.2) X10*3/uL Abs Immat Gran (auto) (0.00-0.03) X10*3/uL Absolute Neuts (auto) (2.0-8.3) x10*3/uL Absolute Nucleated RBC (0.0-0.012) X10*3/uL Nucleated RBC % (auto) (0.0-0.2) /100WBC Sodium (135-145) mmol/L Potassium (3.3-5.1) mmol/L Chloride (96-108) mmol/L Carbon Dioxide (22-29) mmol/L Anion Gap (12-20) BUN (9-16) mg/dL Creatinine (0.5-1.4) mg/dL Estim Creat Clear Calc Estimated GFR Random Glucose (60-115) mg/dL Calcium (8.4-10.2) mg/dL Total Bilirubin (0.0-1.0) mg/dL Direct Bilirubin (0.0-0.5) mg/dL AST (5-37) U/L ALT (0-40) U/L Alkaline Phosphatase (39-117) U/L Total Creatine Kinase (38-174) U/L Troponin I High Sens < 3.5 (<3.5-35.0) ng/L B-Natriuretic Peptide (<100) pg/mL Total Protein (6.5-8.0) g/dL Albumin (3.5-5.0) g/dL Influenza Type A (PCR) NEGATIVE (Negative) Influenza Type B (PCR) NEGATIVE (Negative) RSV RNA Qual (PCR) NEGATIVE (Negative) SARS-CoV-2 RNA (RT-PCR) NEGATIVE (Negative) Independent Interpretation I performed an independent interpretation of an: EKG and Plain X-Ray Interpretation: My interpretation patient's EKG showed a sinus rhythm heart rate 75 MA QRS QTC within normal limits is no acute ST segment elevation noted. My interpretation patient's x-ray was grossly negative for any acute evidence of pneumonia no rib fracture no pneumothorax Independent Historian Clinical information obtained from an independent historian. History obtained from or confirmed by: Parent External Record Review External record reviewed: Inpatient record Chronic Conditions Smoking, history of asthma Critical Care Time Critical Care Time Critical Care Time: Yes Total Critical Care Time: 40 Attestation: I have personally provided 40 minutes of critical care time exclusive of time spent on separately billable procedures. Time includes review of lab data, radiology results, discussion with consultants, and monitoring for potential decompensation. Interventions were performed as documented above Discharge Plan Discharge Clinical Impression: Asthma, Asthma with acute exacerbation Patient Disposition: Home, Self-Care Instructions: Asthma (ED) Prescriptions: New prednisone 20 mg tablet 40 mg PO DAILY Qty: 10 0RF No Action aripiprazole [Abilify] 2 mg Tablet 4 mg PO DAILY lamotrigine [Lamictal] 150 mg Tablet 150 mg PO DAILY methadone 10 mg/mL Solution 150 mg clonazepam [Klonopin] 1 mg Tablet 1 mg PO TID gabapentin 300 mg Tablet 300 mg PO TID naproxen 500 mg tablet 500 mg PO BID 10 Days Qty: 20 0RF Referrals: Clarence Barrientos MD [Primary Care Provider] -
[2023-01-16] MEDS: methylPREDNISolone Sod Succ 125 MG/2 ML VIAL IVPUSH (08:08)
[2023-01-16] MEDS: Magnesium Sulfate/H2O 2 GM/50 ML PIGGYBACK IV (08:09)
[2023-01-16 08:25] VITALS: BP 129/73; PULSE 94; RESP 22; O2SAT 92
[2023-01-16 08:49] LABS: MANUAL DIFF FLAG NO
[2023-01-16 08:53] VITALS: PULSE 93; RESP 21; O2SAT 94
[2023-01-16 08:57] LABS: Basophils Percent Auto 0.4 % (0-2); Eosinophils Absolute Auto 0.9 X10*3/uL (0.0-0.4); Eosinophils Percent Auto 7.7 % (0-4); Hematocrit 40.2 % (42.0-52.0); Hemoglobin 13.1 g/dl (14.0-18.0); Imm Gran Abs Auto 0.02 X10*3/uL (0.00-0.03); Imm Gran Pct Auto 0.2 % (0.0-0.4); Lymphocytes Absolute Auto 3.3 X10*3/uL (1.2-4.9); Lymphocytes Percent Auto 28.6 % (20-40); Mean Corpuscular HGB Conc 32.6 g/dl (31.0-36.0); Mean Corpuscular Hemoglobin 28.6 pg (27.0-33.0); Mean Corpuscular Volume 87.8 fL (80.0-98.0); Mean Platelet Volume 10.3 fL (9.4-12.4); Monocytes Absolute Auto 0.8 X10*3/uL (0.1-1.2); Monocytes Percent Auto 6.9 % (2-11); Neutrophils Absolute Auto 6.4 x10*3/uL (2.0-8.3); Neutrophils Percent Auto 56.2 % (45-73); Platelet Count 254 X10*3/uL (160-400); Red Blood Count 4.58 X10*6/uL (4.60-5.80); Red Cell Distribution Width 12.6 % (11.0-16.0); White Blood Count 11.4 X10*3/uL (4.8-10.8)
[2023-01-16 09:13] LABS: Alanine Aminotransferase 27 U/L (0-40); Albumin Level 4.1 g/dL (3.5-5.0); Alkaline Phosphatase 105 U/L (39-117); Anion Gap 13 (12-20); Aspartate Amino Transferase 19 U/L (5-37); Bilirubin Direct < 0.2 mg/dL (0.0-0.5); Bilirubin Total 0.3 mg/dL (0.0-1.0); Blood Urea Nitrogen 10 mg/dL (9-16); Calcium 8.7 mg/dL (8.4-10.2); Carbon Dioxide 30 mmol/L (22-29); Chloride 101 mmol/L (96-108); Creatinine Clr Calc Pharmacy 149.1; Estimated Glomerular Filt Rate > 60; Glucose Random 110 mg/dL (60-115); Potassium 4.1 mmol/L (3.3-5.1); Sodium 140 mmol/L (135-145); Total Protein 7.1 g/dL (6.5-8.0)
[2023-01-16 09:21] LABS: Troponin-I High Sensitivity < 3.5 ng/L (<3.5-35.0)
[2023-01-16 09:35] LABS: B Type Natriuretic Peptide < 10 pg/mL (<100)
[2023-01-16 09:40] LABS: Influenza A PCR NEGATIVE (Negative); Influenza B PCR NEGATIVE (Negative); Resp Syncy Virus RNA Qual PCR NEGATIVE (Negative); SARS COV2 PCR INHOUSE NEGATIVE (Negative)
[2023-01-16 10:10] VITALS: BP 127/72; PULSE 96; RESP 18; TEMP 36.9; O2SAT 93
[2023-01-16 10:20] VITALS: O2SAT 90
== END 2023-01-16 11:13 | disposition home or self-care (01) ==
PROVIDERS: Emergency Provider Emergency Medicine Emergency Medical Services; PCP Family Medicine
DX: J45.901 Unspecified asthma with (acute) exacerbation (principal); R06.02 Shortness of breath; R07.89 Other chest pain; Z20.822 Contact with and (suspected) exposure to COVID-19; Z20.828 Contact with and (suspected) exposure to other viral communicable diseases; Z79.899 Other long term (current) drug therapy
CPT/HCPCS: 0241U; 36415; 71045; 80048; 80076; 82550; 83880; 84484; 85025; 93005; 94640; 96365; 96375; 99284; 99285; J2930; J3475